=== PATIENT | female | born 1965 | race Caucasian/White ===

== ENCOUNTER → 2020-08-10 10:30 | Outpatient (BNVA) | payer SELFPAY | PROVIDERS: PCP Internal Medicine; Referring Provider Internal Medicine; Visit Provider Student in an Organized Health Care Education/Training Program | DX: Z76.89 Persons encountering health services in other specified circumstances (principal) ==

== ENCOUNTER 2020-11-03 14:09 | Outpatient (REF) | payer BC, SELFPAY ==
[2020-11-03 14:43] LABS: Basophils Percent Auto 0.2 % (0-2); Eosinophils Absolute Auto 0.2 X10*3/uL (0.0-0.4); Eosinophils Percent Auto 2.2 % (0-4); Hematocrit 44.4 % (37-47); Hemoglobin 14.7 g/dl (12.0-16.0); Imm Gran Abs Auto 0.03 X10*3/uL (0.00-0.03); Imm Gran Pct Auto 0.4 % (0.0-0.4); Lymphocytes Absolute Auto 3.2 X10*3/uL (1.2-4.9); Lymphocytes Percent Auto 37.9 % (20-40); MANUAL DIFF FLAG NO; Mean Corpuscular HGB Conc 33.1 g/dl (31.0-35.0); Mean Corpuscular Hemoglobin 31.3 pg (27.0-33.0); Mean Corpuscular Volume 94.7 fL (80-98); Mean Platelet Volume 11.4 fL (9.4-12.3); Monocytes Absolute Auto 0.5 X10*3/uL (0.1-1.2); Monocytes Percent Auto 5.6 % (2-11); Neutrophils Absolute Auto 4.5 X10*3/uL (2.0-8.3); Neutrophils Percent Auto 53.7 % (45-73); Platelet Count 225 X10*3/uL (160-400); Red Blood Count 4.69 X10*6/uL (4.20-5.50); Red Cell Distribution Width 13.2 % (11.0-16.0); White Blood Count 8.5 X10*3/uL (4.8-10.8)
[2020-11-03 14:47] LABS: Glucose Urine UA NEG (NEG); Leukocyte Esterase Urine 2+ (NEG); Nitrite Urine NEG (NEG); Specific Gravity - Urine >= 1.030 (1.005-1.025); Urine Blood 2+ (NEG); Urine Ketones NEG (NEG); Urine Protein NEG (NEG-TRACE)
[2020-11-03 14:50] LABS: Appearance Urine HAZY; Color Urine YELLOW
[2020-11-03 15:04] LABS: Mucus Urine TRACE /LPF; Squamous Epithelial Cell Urine 1+ /LPF
[2020-11-03 15:11] LABS: Alanine Aminotransferase 61 U/L (0-31); Albumin Level 4.6 g/dL (3.5-5.0); Alkaline Phosphatase 102 U/L (39-117); Anion Gap 11 (12-20); Aspartate Amino Transferase 40 U/L (5-31); Bilirubin Total 0.3 mg/dL (0.0-1.0); Blood Urea Nitrogen 14 mg/dL (9-16); C Reactive Protein 0.87 mg/dL (< or = 0.50); Calcium 9.3 mg/dL (8.4-10.2); Carbon Dioxide 32 mmol/L (22-29); Chloride 104 mmol/L (96-108); Estimated Glomerular Filt Rate > 60; Glucose Random 80 mg/dL (60-115); Potassium 4.5 mmol/l (3.3-5.1); Sodium 142 mmol/L (135-145); Total Protein 6.8 g/dL (6.5-8.0)
[2020-11-03 15:22] LABS: Erythrocyte Sedimentation Rate 5 MM/HR (0-20)
[2020-11-05 11:52] LABS: Anti DNA DS Antibody <1 IU/mL
[2020-11-07 14:08] LABS: Complement C3 149 mg/dL (83-193)
== END 2020-11-03 14:10 | disposition home or self-care (01) ==
LOC: HO.LAB 14:09
PROVIDERS: PCP Internal Medicine; Visit Provider Student in an Organized Health Care Education/Training Program
DX: M35.00 Sjogren syndrome, unspecified (principal); D80.1 Nonfamilial hypogammaglobulinemia; Z79.899 Other long term (current) drug therapy
CPT/HCPCS: 36415; 80053; 81001; 85025; 85652; 86140; 86160; 86225

== ENCOUNTER 2020-11-15 16:15 | Outpatient (REF) | payer BC, SELFPAY ==
[2020-11-15 17:00] LABS: Glucose Urine UA NEG (NEG); Leukocyte Esterase Urine TRACE (NEG); Nitrite Urine NEG (NEG); PH 5.5 (5.0-8.0); Specific Gravity - Urine >= 1.030 (1.005-1.025); Urine Blood TRACE (NEG); Urine Ketones NEG (NEG); Urine Protein NEG (NEG-TRACE)
[2020-11-15 17:04] LABS: Appearance Urine CLEAR; Color Urine YELLOW
[2020-11-15 17:24] LABS: Bacteria Urine 1+ /LPF; RBC Urine 0-2 /HPF (0); Squamous Epithelial Cell Urine TRACE /LPF; WBC Urine 0-2 /HPF (0-4)
[2020-11-15 17:28] LABS: Alanine Aminotransferase 23 U/L (0-31); Albumin Level 4.3 g/dL (3.5-5.0); Alkaline Phosphatase 105 U/L (39-117); Anion Gap 10 (12-20); Aspartate Amino Transferase 19 U/L (5-31); Bilirubin Total 0.2 mg/dL (0.0-1.0); Blood Urea Nitrogen 12 mg/dL (9-16); Carbon Dioxide 33 mmol/L (22-29); Chloride 104 mmol/L (96-108); Estimated Glomerular Filt Rate > 60; Glucose Random 93 mg/dL (60-115); Potassium 4.2 mmol/l (3.3-5.1); Sodium 143 mmol/L (135-145); Total Protein 6.4 g/dL (6.5-8.0)
== END 2020-11-15 16:16 | disposition home or self-care (01) ==
LOC: HO.LAB 16:15
PROVIDERS: PCP Internal Medicine; Visit Provider Student in an Organized Health Care Education/Training Program
DX: M35.00 Sjogren syndrome, unspecified (principal); Z79.899 Other long term (current) drug therapy
CPT/HCPCS: 36415; 80053; 81001

== ENCOUNTER → 2020-11-22 08:01 | Outpatient (BNVA) | payer BC, SELFPAY | PROVIDERS: PCP Internal Medicine; Referring Provider Internal Medicine; Visit Provider Student in an Organized Health Care Education/Training Program ==

== ENCOUNTER 2021-03-23 07:57 | Outpatient (REF) | payer BC, SELFPAY ==
[2021-03-23 09:37] LABS: MANUAL DIFF FLAG NO
[2021-03-23 09:45] LABS: Basophils Percent Auto 0.3 % (0-2); Eosinophils Absolute Auto 0.2 X10*3/uL (0.0-0.4); Hemoglobin 14.1 g/dl (12.0-16.0); Imm Gran Abs Auto 0.03 X10*3/uL (0.00-0.03); Imm Gran Pct Auto 0.4 % (0.0-0.4); Lymphocytes Absolute Auto 2.8 X10*3/uL (1.2-4.9); Lymphocytes Percent Auto 40.9 % (20-40); Mean Corpuscular HGB Conc 33.6 g/dl (31.0-35.0); Mean Corpuscular Hemoglobin 31.5 pg (27.0-33.0); Mean Corpuscular Volume 93.8 fL (80-98); Mean Platelet Volume 11.2 fL (9.4-12.3); Monocytes Absolute Auto 0.3 X10*3/uL (0.1-1.2); Monocytes Percent Auto 4.7 % (2-11); Neutrophils Absolute Auto 3.4 X10*3/uL (2.0-8.3); Neutrophils Percent Auto 50.7 % (45-73); Platelet Count 225 X10*3/uL (160-400); Red Blood Count 4.48 X10*6/uL (4.20-5.50); Red Cell Distribution Width 13.7 % (11.0-16.0); White Blood Count 6.8 X10*3/uL (4.8-10.8)
[2021-03-23 09:45] LABS: Glucose Urine UA NEG (NEG); Leukocyte Esterase Urine NEG (NEG); Nitrite Urine NEG (NEG); PH 5.5 (5.0-8.0); Specific Gravity - Urine >= 1.030 (1.005-1.025); Urine Blood 1+ (NEG); Urine Ketones NEG (NEG); Urine Protein NEG (NEG-TRACE)
[2021-03-23 09:47] LABS: Appearance Urine HAZY; Color Urine YELLOW
[2021-03-23 10:05] LABS: Alanine Aminotransferase 24 U/L (0-31); Albumin Level 4.1 g/dL (3.5-5.0); Alkaline Phosphatase 101 U/L (39-117); Anion Gap 11 (12-20); Aspartate Amino Transferase 18 U/L (5-31); Bilirubin Total 0.5 mg/dL (0.0-1.0); Blood Urea Nitrogen 13 mg/dL (9-16); C Reactive Protein 0.76 mg/dL (< or = 0.50); Calcium 9.2 mg/dL (8.4-10.2); Carbon Dioxide 29 mmol/L (22-29); Chloride 106 mmol/L (96-108); Estimated Glomerular Filt Rate > 60; Glucose Random 107 mg/dL (60-115); Potassium 4.6 mmol/L (3.3-5.1); Sodium 141 mmol/L (135-145); Total Protein 6.2 g/dL (6.5-8.0)
[2021-03-23 10:10] LABS: Bacteria Urine TRACE /LPF; RBC Urine 0-2 /HPF (0); Squamous Epithelial Cell Urine 3+ /LPF; WBC Urine 0-2 /HPF (0-4)
[2021-03-23 10:37] LABS: Erythrocyte Sedimentation Rate 7 MM/HR (0-20)
[2021-03-24 14:11] LABS: Complement C3 98 mg/dL (83-193)
[2021-03-25 12:21] LABS: Anti DNA DS Antibody 1 IU/mL; SM/Ribonucleoprotein Ab <1.0 NEG AI (<1.0 NEG); Smith Protein <1.0 NEG AI (<1.0 NEG)
[2021-03-27 15:37] LABS: Anti Nuclear Antibody Screen POSITIVE (NEGATIVE)
== END 2021-03-23 07:58 | disposition home or self-care (01) ==
LOC: HO.LAB 07:57
PROVIDERS: PCP Internal Medicine; Visit Provider Student in an Organized Health Care Education/Training Program
DX: M35.00 Sjogren syndrome, unspecified (principal); D80.1 Nonfamilial hypogammaglobulinemia; Z79.899 Other long term (current) drug therapy
CPT/HCPCS: 36415; 80053; 81001; 85025; 85652; 86038; 86039; 86140; 86160; 86225; 86235

== ENCOUNTER 2021-06-24 09:05 | Outpatient (REF) | payer BC, SELFPAY ==
[2021-06-24 10:13] LABS: MANUAL DIFF FLAG NO
[2021-06-24 10:15] LABS: Basophils Percent Auto 0.5 % (0-2); Eosinophils Absolute Auto 0.3 X10*3/uL (0.0-0.4); Eosinophils Percent Auto 4.5 % (0-4); Hematocrit 42.7 % (37-47); Hemoglobin 14.5 g/dl (12.0-16.0); Imm Gran Abs Auto 0.02 X10*3/uL (0.00-0.03); Imm Gran Pct Auto 0.3 % (0.0-0.4); Lymphocytes Absolute Auto 2.3 X10*3/uL (1.2-4.9); Lymphocytes Percent Auto 36.7 % (20-40); Mean Corpuscular Hemoglobin 31.5 pg (27.0-33.0); Mean Corpuscular Volume 92.6 fL (80-98); Mean Platelet Volume 11.3 fL (9.4-12.3); Monocytes Absolute Auto 0.6 X10*3/uL (0.1-1.2); Monocytes Percent Auto 9.2 % (2-11); Neutrophils Percent Auto 48.8 % (45-73); Platelet Count 202 X10*3/uL (160-400); Red Blood Count 4.61 X10*6/uL (4.20-5.50); Red Cell Distribution Width 13.4 % (11.0-16.0); White Blood Count 6.2 X10*3/uL (4.8-10.8)
[2021-06-24 10:47] LABS: Alanine Aminotransferase 26 U/L (0-31); Albumin Level 4.2 g/dL (3.5-5.0); Alkaline Phosphatase 109 U/L (39-117); Anion Gap 14 (12-20); Aspartate Amino Transferase 22 U/L (5-31); Bilirubin Total 0.5 mg/dL (0.0-1.0); Blood Urea Nitrogen 13 mg/dL (9-16); C Reactive Protein 3.21 mg/dL (< or = 0.50); Calcium 9.4 mg/dL (8.4-10.2); Carbon Dioxide 25 mmol/L (22-29); Chloride 106 mmol/L (96-108); Estimated Glomerular Filt Rate > 60; Glucose Random 122 mg/dL (60-115); Sodium 141 mmol/L (135-145); Total Protein 6.4 g/dL (6.5-8.0)
[2021-06-24 11:32] LABS: Glucose Urine UA NEG (NEG); Leukocyte Esterase Urine NEG (NEG); Nitrite Urine NEG (NEG); PH 5.5 (5.0-8.0); Specific Gravity - Urine >= 1.030 (1.005-1.025); Urine Blood 1+ (NEG); Urine Ketones NEG (NEG); Urine Protein NEG (NEG-TRACE)
[2021-06-24 11:37] LABS: Appearance Urine HAZY; Color Urine YELLOW
[2021-06-24 11:45] LABS: Bacteria Urine 1+ /LPF; Mucus Urine 1+ /LPF; Squamous Epithelial Cell Urine 2+ /LPF
== END 2021-06-24 09:06 | disposition home or self-care (01) ==
LOC: HO.LAB 09:05
PROVIDERS: PCP Internal Medicine; Visit Provider Student in an Organized Health Care Education/Training Program
DX: M35.00 Sjogren syndrome, unspecified (principal)
CPT/HCPCS: 36415; 80053; 81001; 85025; 86140

== ENCOUNTER 2021-06-27 08:01 | Outpatient (REF) | payer BC, SELFPAY ==
[2021-06-27 10:03] LABS: HBS Num1 0.31 mIU/mL (0-7.99); ~Hepatitis B Surface Antibody NONREACTIVE (Nonreactive)
[2021-06-27 10:14] LABS: HBc Num1 0.08 S/CO (0.00-0.79); HBsAGNum1 0.21 S/CO (0.00-0.99); Hepatitis B Core Antibody Nonreactive (Nonreactive); Hepatitis B Surface Antigen Negative (Negative); ~Hepatitis C Antibody Nonreactive (Nonreactive)
[2021-06-28 08:48] LABS: Hepatitis A Antibody IgM 0.14 Index (0-0.79); ~Hepatitis A Antibody IgM Nonreactive (Nonreactive)
[2021-06-30 12:21] LABS: TS Negative Control Passed; TS Panel A 0; TS Panel B 0; TS Positive Control Passed; TSpotTB Negative (SeeBelow)
== END 2021-06-27 08:02 | disposition home or self-care (01) ==
LOC: HO.LAB 08:01
PROVIDERS: PCP Internal Medicine; Visit Provider Student in an Organized Health Care Education/Training Program
DX: M35.00 Sjogren syndrome, unspecified (principal); M06.00 Rheumatoid arthritis without rheumatoid factor, unspecified site; D80.1 Nonfamilial hypogammaglobulinemia; Z79.899 Other long term (current) drug therapy
CPT/HCPCS: 36415; 86481; 86704; 86706; 86709; 86803; 87340

== ENCOUNTER → 2022-01-01 08:01 | Outpatient (BNVA) | payer BC, SELFPAY | PROVIDERS: PCP Internal Medicine; Visit Provider Internal Medicine Rheumatology ==

== ENCOUNTER 2022-02-01 09:52 | Outpatient (REF) | payer BC, SELFPAY ==
[2022-02-01 10:39] LABS: MANUAL DIFF FLAG NO
[2022-02-01 11:34] LABS: Appearance Urine HAZY; Color Urine YELLOW; Glucose Urine UA NEG (NEG); Leukocyte Esterase Urine 1+ (NEG); Nitrite Urine NEG (NEG); Specific Gravity - Urine 1.025 (1.005-1.025); Urine Blood 1+ (NEG); Urine Ketones NEG (NEG); Urine Protein NEG (NEG-TRACE)
[2022-02-01 11:37] LABS: Alanine Aminotransferase 27 U/L (0-31); Aspartate Amino Transferase 22 U/L (5-31); Estimated Glomerular Filt Rate > 60
[2022-02-01 11:43] LABS: Basophils Percent Auto 0.1 % (0-2); Eosinophils Absolute Auto 0.2 X10*3/uL (0.0-0.4); Eosinophils Percent Auto 2.2 % (0-4); Hematocrit 44.1 % (37.0-47.0); Hemoglobin 14.6 g/dl (12.0-16.0); Imm Gran Abs Auto 0.03 X10*3/uL (0.00-0.03); Imm Gran Pct Auto 0.4 % (0.0-0.4); Lymphocytes Absolute Auto 3.4 X10*3/uL (1.2-4.9); Lymphocytes Percent Auto 48.6 % (20-40); Mean Corpuscular HGB Conc 33.1 g/dl (31.0-35.0); Mean Corpuscular Hemoglobin 30.8 pg (27.0-33.0); Mean Platelet Volume 11.8 fL (9.4-12.3); Monocytes Absolute Auto 0.5 X10*3/uL (0.1-1.2); Monocytes Percent Auto 6.8 % (2-11); Neutrophils Absolute Auto 2.9 x10*3/uL (2.0-8.3); Neutrophils Percent Auto 41.9 % (45-73); Platelet Count 203 X10*3/uL (160-400); Red Blood Count 4.74 X10*6/uL (4.20-5.50); Red Cell Distribution Width 13.5 % (11.0-16.0)
[2022-02-01 12:09] LABS: Bacteria Urine 2+ /LPF; Mucus Urine 1+ /LPF; Squamous Epithelial Cell Urine 3+ /LPF
[2022-02-01 12:34] LABS: Erythrocyte Sedimentation Rate 3 MM/HR (0-20)
[2022-02-05 13:02] LABS: Cyclic Citrullinated Peptide <16 UNITS
== END 2022-02-01 09:53 | disposition home or self-care (01) ==
LOC: HO.LAB 09:52
PROVIDERS: PCP Internal Medicine; Visit Provider Internal Medicine Rheumatology
DX: M06.00 Rheumatoid arthritis without rheumatoid factor, unspecified site (principal); M62.81 Muscle weakness (generalized); Z79.899 Other long term (current) drug therapy
CPT/HCPCS: 36415; 81001; 82550; 82565; 84450; 84460; 85025; 85652; 86200

== ENCOUNTER → 2022-02-05 08:03 | Outpatient (BNVA) | payer BC, SELFPAY | PROVIDERS: PCP Internal Medicine; Visit Provider Internal Medicine Rheumatology | DX: Z13.89 Encounter for screening for other disorder (principal) ==

== ENCOUNTER → 2022-02-22 09:07 | Outpatient (BNVA) | payer BC, SELFPAY | PROVIDERS: PCP Internal Medicine; Visit Provider Internal Medicine Rheumatology | DX: Z13.89 Encounter for screening for other disorder (principal) ==

== ENCOUNTER 2022-05-08 08:59 | Outpatient (REF) | payer BC, SELFPAY ==
[2022-05-08 09:21] LABS: MANUAL DIFF FLAG NO
[2022-05-08 09:54] LABS: Basophils Percent Auto 0.4 % (0-2); Eosinophils Absolute Auto 0.1 X10*3/uL (0.0-0.4); Eosinophils Percent Auto 2.7 % (0-4); Hematocrit 42.8 % (37.0-47.0); Hemoglobin 14.3 g/dl (12.0-16.0); Imm Gran Abs Auto 0.02 X10*3/uL (0.00-0.03); Imm Gran Pct Auto 0.4 % (0.0-0.4); Lymphocytes Absolute Auto 2.7 X10*3/uL (1.2-4.9); Lymphocytes Percent Auto 51.2 % (20-40); Mean Corpuscular HGB Conc 33.4 g/dl (31.0-35.0); Mean Corpuscular Hemoglobin 31.2 pg (27.0-33.0); Mean Corpuscular Volume 93.2 fL (80.0-98.0); Mean Platelet Volume 11.3 fL (9.4-12.3); Monocytes Absolute Auto 0.3 X10*3/uL (0.1-1.2); Monocytes Percent Auto 6.4 % (2-11); Neutrophils Percent Auto 38.9 % (45-73); Platelet Count 202 X10*3/uL (160-400); Red Blood Count 4.59 X10*6/uL (4.20-5.50); Red Cell Distribution Width 13.6 % (11.0-16.0); White Blood Count 5.2 X10*3/uL (4.8-10.8)
[2022-05-08 09:55] LABS: Appearance Urine CLEAR; Color Urine YELLOW; Glucose Urine UA NEG (NEG); Leukocyte Esterase Urine NEG (NEG); Nitrite Urine NEG (NEG); Urine Blood 2+ (NEG); Urine Ketones NEG (NEG); Urine Protein NEG (NEG-TRACE)
[2022-05-08 10:13] LABS: Bacteria Urine 1+ /LPF; Squamous Epithelial Cell Urine 3+ /LPF; WBC Urine 0-2 /HPF (0-4)
[2022-05-08 10:22] LABS: Alanine Aminotransferase 33 U/L (0-31); Aspartate Amino Transferase 34 U/L (5-31); C Reactive Protein 0.86 mg/dL (< or = 0.50); Estimated Glomerular Filt Rate > 60
[2022-05-08 10:33] LABS: Erythrocyte Sedimentation Rate 5 MM/HR (0-20)
== END 2022-05-08 09:00 | disposition home or self-care (01) ==
LOC: HO.LAB 08:59
PROVIDERS: PCP Internal Medicine; Visit Provider Internal Medicine Rheumatology
DX: M06.00 Rheumatoid arthritis without rheumatoid factor, unspecified site (principal); Z79.899 Other long term (current) drug therapy
CPT/HCPCS: 36415; 81001; 82565; 84450; 84460; 85025; 85652; 86140

== ENCOUNTER 2022-08-07 12:23 | Outpatient (REF) | payer BC, SELFPAY ==
[2022-08-07 13:59] LABS: Appearance Urine Cloudy; Color Urine Dark Yellow; Glucose Urine UA Negative (Negative); Leukocyte Esterase Urine Small (1+) (Negative); Nitrite Urine Negative (Negative); PH 5.5 (5.0-9.0); Specific Gravity - Urine >= 1.030 (1.005-1.025); UMIC TRIGGER UA YES; Urine Blood Small (1+) (Negative); Urine Ketones Trace mg/dL (Negative); Urine Protein Trace mg/dL (Neg-Trace)
[2022-08-07 14:16] LABS: Bacteria Urine 4+ (None Seen); Hyaline Casts Urine 0-2 /LPF (0-2); Squamous Epithelial Cell Urine >20 /HPF (0-2)
[2022-08-07 14:27] LABS: Alanine Aminotransferase 34 U/L (0-31); Albumin Level 4.6 g/dL (3.5-5.0); Alkaline Phosphatase 98 U/L (39-117); Aspartate Amino Transferase 32 U/L (5-31); Bilirubin Direct 0.2 mg/dL (0.0-0.5); Bilirubin Total 0.5 mg/dL (0.0-1.0); Total Protein 6.9 g/dL (6.5-8.0)
[2022-08-08 16:47] LABS: Complement C3 153 mg/dL (83-193)
[2022-08-10 08:22] LABS: Anti DNA DS Antibody <1 IU/mL
== END 2022-08-07 12:24 | disposition home or self-care (01) ==
LOC: HO.10HDL 12:23
PROVIDERS: Visit Provider Internal Medicine Rheumatology
DX: R76.8 Other specified abnormal immunological findings in serum (principal); R74.01 Elevation of levels of liver transaminase levels
CPT/HCPCS: 36415; 80076; 81001; 82550; 86160; 86225

== ENCOUNTER 2022-11-16 15:57 | Outpatient (REF) | payer BC, SELFPAY ==
--- NOTE | ~2022-11-16 | XR_ITS ---
EXAMINATION: XR SINUSES CLINICAL INFORMATION: Sinusitis. COMPARISON: None TECHNIQUE: 5 views of the sinuses were obtained. FINDINGS: Large air-fluid levels are seen in the maxillary sinuses bilaterally, right greater than left with near complete opacification on the right. Similar air-fluid levels are seen in the frontal sinuses. The ethmoid and sphenoid sinuses are less well-visualized without definitive air-fluid levels. The osseous structures are intact. There is no acute fracture. The soft tissues are unremarkable. XR/XR sinus min 3V IMPRESSION: Paranasal sinusitis visualized within the maxillary and frontal sinuses radiographically. This could be better evaluated with a sinus CT scan.
== END 2022-11-16 15:58 | disposition home or self-care (01) ==
LOC: HO.XRAY 15:57
PROVIDERS: PCP Internal Medicine; Visit Provider Physician Assistant
DX: J32.9 Chronic sinusitis, unspecified (principal)
CPT/HCPCS: 70220

== ENCOUNTER 2022-12-26 08:21 | Outpatient (REF) | payer BC, SELFPAY ==
[2022-12-26 08:34] LABS: MANUAL DIFF FLAG NO
[2022-12-26 09:03] LABS: Hematocrit 45.1 % (37.0-47.0); Hemoglobin 15.1 g/dl (12.0-16.0); Imm Gran Pct Auto 0.3 % (0.0-0.4); Lymphocytes Percent Auto 45.5 % (20-40); Mean Corpuscular HGB Conc 33.5 g/dl (31.0-35.0); Mean Corpuscular Hemoglobin 30.8 pg (27.0-33.0); Mean Corpuscular Volume 91.9 fL (80.0-98.0); Mean Platelet Volume 11.5 fL (9.4-12.3); Neutrophils Percent Auto 45.8 % (45-73); Platelet Count 210 X10*3/uL (160-400); Red Blood Count 4.91 X10*6/uL (4.20-5.50); Red Cell Distribution Width 13.7 % (11.0-16.0); White Blood Count 6.5 X10*3/uL (4.8-10.8)
[2022-12-26 09:04] LABS: Basophils Percent Auto 0.3 % (0-2); Eosinophils Absolute Auto 0.2 X10*3/uL (0.0-0.4); Eosinophils Percent Auto 2.9 % (0-4); Imm Gran Abs Auto 0.02 X10*3/uL (0.00-0.03); Monocytes Absolute Auto 0.3 X10*3/uL (0.1-1.2); Monocytes Percent Auto 5.2 % (2-11)
[2022-12-26 09:39] LABS: Erythrocyte Sedimentation Rate 6 MM/HR (0-20)
[2022-12-26 10:01] LABS: Alanine Aminotransferase 21 U/L (0-31); Aspartate Amino Transferase 21 U/L (5-31); C Reactive Protein 0.41 mg/dL (< or = 0.50); Estimated Glomerular Filt Rate > 60
== END 2022-12-26 08:22 | disposition home or self-care (01) ==
LOC: HO.LAB 08:21
PROVIDERS: PCP Internal Medicine; Visit Provider Internal Medicine Rheumatology
DX: M06.00 Rheumatoid arthritis without rheumatoid factor, unspecified site (principal); Z79.899 Other long term (current) drug therapy
CPT/HCPCS: 36415; 82565; 84450; 84460; 85025; 85652; 86140

== ENCOUNTER 2024-11-12 07:57 | Outpatient (REF) | payer BC, SELFPAY ==
[2024-11-12 10:07] LABS: MANUAL DIFF FLAG NO
[2024-11-12 10:31] LABS: Basophils Percent Auto 0.4 % (0-2); Eosinophils Absolute Auto 0.3 X10*3/uL (0.0-0.4); Eosinophils Percent Auto 3.5 % (0-4); Hemoglobin 15.2 g/dl (12.0-16.0); Imm Gran Abs Auto 0.03 X10*3/uL (0.00-0.03); Imm Gran Pct Auto 0.4 % (0.0-0.4); Lymphocytes Absolute Auto 3.1 X10*3/uL (1.2-4.9); Lymphocytes Percent Auto 39.1 % (20-40); Mean Corpuscular HGB Conc 34.5 g/dl (31.0-35.0); Mean Corpuscular Hemoglobin 31.5 pg (27.0-33.0); Mean Corpuscular Volume 91.3 fL (80.0-98.0); Mean Platelet Volume 10.4 fL (9.4-12.3); Monocytes Absolute Auto 0.5 X10*3/uL (0.1-1.2); Monocytes Percent Auto 6.1 % (2-11); Neutrophils Absolute Auto 4.1 x10*3/uL (2.0-8.3); Neutrophils Percent Auto 50.5 % (45-73); Platelet Count 253 X10*3/uL (160-400); Red Blood Count 4.82 X10*6/uL (4.20-5.50); Red Cell Distribution Width 14.2 % (11.0-16.0)
[2024-11-12 11:01] LABS: Appearance Urine Hazy; Color Urine Yellow; Glucose Urine UA Negative (Negative); Leukocyte Esterase Urine Small (1+) (Negative); Nitrite Urine Negative (Negative); PH 5.5 (5.0-9.0); Specific Gravity - Urine >= 1.030 (1.005-1.025); UMIC TRIGGER UA YES; Urine Blood Small (1+) (Negative); Urine Ketones Negative (Negative); Urine Protein Negative (Neg-Trace)
[2024-11-12 11:08] LABS: Alanine Aminotransferase 99 U/L (0-31); Albumin Level 4.3 g/dL (3.5-5.0); Anion Gap 12 (12-20); Aspartate Amino Transferase 51 U/L (5-31); Bilirubin Total 0.5 mg/dL (0.0-1.0); Blood Urea Nitrogen 11 mg/dL (9-16); C Reactive Protein 0.65 mg/dL (< or = 0.50); Calcium 9.3 mg/dL (8.4-10.2); Carbon Dioxide 25 mmol/L (22-29); Chloride 109 mmol/L (96-108); Estimated Glomerular Filt Rate > 60; Glucose Random 94 mg/dL (60-115); Sodium 142 mmol/L (135-145)
[2024-11-12 11:08] LABS: Erythrocyte Sedimentation Rate 6 MM/HR (0-20)
[2024-11-12 11:41] LABS: Bacteria Urine 2+ (None Seen); Squamous Epithelial Cell Urine >20 /HPF (0-2)
[2024-11-12 12:25] LABS: Alkaline Phosphatase 92 U/L (39-117)
[2024-11-12 13:52] LABS: Creatinine Urine 140.66 mg/dL; Protein/Creatinine Ratio, Ur 0.07 (<0.2); Total Protein Urine Random 10 mg/dL (<12)
[2024-11-13 16:38] LABS: Anti DNA DS Antibody <1 IU/mL; Antibody to SS-A Antigen <1.0 NEG AI (<1.0 NEG); Antibody to SS-B Antigen >8.0 POS AI (<1.0 NEG); SM/Ribonucleoprotein Ab <1.0 NEG AI (<1.0 NEG); Smith Protein <1.0 NEG AI (<1.0 NEG)
[2024-11-16 17:54] LABS: Complement C3 162 mg/dL (83-193)
[2024-11-17 14:17] LABS: Vitamin D 25-OH, D2 <4 ng/mL; Vitamin D 25-OH, D3 14 ng/mL; Vitamin D 25-OH, Total 14 ng/mL (30-100)
[2024-11-17 15:53] LABS: DNAds, Crithidia Antibody Negative (Negative)
[2024-11-17 22:47] LABS: PTT (LAC) Screen 31 sec (<=40)
[2024-11-18 15:59] LABS: Anti Nuclear Antibody Screen NEGATIVE (NEGATIVE)
== END 2024-11-12 07:58 | disposition home or self-care (01) ==
LOC: HO.LAB 07:57
PROVIDERS: PCP Family Medicine; Visit Provider Student in an Organized Health Care Education/Training Program
DX: M32.9 Systemic lupus erythematosus, unspecified (principal); M70.61 Trochanteric bursitis, right hip; M70.62 Trochanteric bursitis, left hip; Z79.899 Other long term (current) drug therapy
CPT/HCPCS: 20610; 36415; 80053; 81001; 82306; 82570; 84156; 85025; 85597; 85598; 85613; 85652; 85730; 86038; 86140; 86160; 86225; 86235; 86255; J2003; J3300

== ENCOUNTER 2024-11-12 07:57 | Outpatient (AMB) | payer BC, SELFPAY ==
[2024-11-12 08:09] VITALS: BP 150/100; PULSE 76; BMI 32.3
--- NOTE | 2024-11-12 08:09 | MHC.OFFVIS ---
Vital Signs 11/12/24 08:09 Height 5 ft 8 in Weight 212 lb 8.41 oz BMI 32.3 BP 150/100 H Blood Pressure Location Rt brachial Position Sitting Pulse 76 Pulse Source Pulse Oximeter Intake Visit Reasons: RA Intake Note: Patient last seen by Deep Castanon on 08/08/22. Presents today for RA follow up. Fish Tender Required: No Accompanied by: Self / Same As Patient Allergies levofloxacin [From LEVAQUIN] Allergy (Severe, Verified 11/12/24 08:13) ANAPHYLAXIS ENVIRONMENTAL Allergy (Mild, Uncoded 11/12/24 08:13) SINSUS CONGESTION, ITCHY/WATERY EYES Medication List - Last Reconciled 11/12/24 by America Barrera MD acetaminophen ER (Mapap Arthritis Pain) 650 mg PO Q8H PRN cetirizine (Zyrtec) 10 mg PO DAILY diphenhydramine-acetaminophen 25-500 mg (Tylenol PM Extra Strength) 1 tab PO BEDTIME folic acid 1 mg PO DAILY hydroxychloroquine 200 mg PO BID methotrexate sodium 7.5 mg (3 x 2.5 mg) PO QWEEK triamcinolone acetonide 0.1% 1 appl topical DAILY HPI Comments Details: Patient is a 59-year-old female with lupus presents today for follow up. Interval History: Patient last seen here 08/08/[address] Carmichael. At that time patient was stable. Methotrexate was decreased because she was doing well on Humira. Since that time she has not been seeing a back order clerk regularly and has stopped Humira for over 1 year due to high co-pays Over the past year she has been having worsening joint pain and rashes. Currently her face rash has been present since and has been worsening. SHe also reports painful rash to her hand and fingers. Rheumatologic History: Patient initially diagnosed with an autoimmune disorder back in 2015. At that time she was thought to have Sjogren's syndrome with a positive LOGAN and positive SSB. She also had some inflammatory joint pain and was started on Plaquenil and methotrexate. She was also noting malar rash the time. She was then subsequently thought to have seronegative rheumatoid arthritis and subsequently started on Humira which helped her joint pain. Her last follow up with Rheumatology was in 2022. Current Rheumatology Medication(s): Hydroxychloroquine 200mg bid Methotrexate 15mg weekly Humira 40mg SC every other week (last took 1 year ago. Stopped due to insurance issues) Folic acid 1 mg [facility] Medical History (Updated 11/12/24 @ 11:17 by America Barrera MD) Greater trochanteric bursitis of both hips Lupus (systemic lupus erythematosus) Osteoarthritis of lumbosacral spine Osteoarthritis of both knees Nail abnormalities Sjogren's syndrome Surgical History Hx of appendectomy Hx of cholecystectomy Social History Household Members: Spouse Both parents involved: No Caregiver staying overnight: No Housing: House Are you a primary child care center assistant director to a significant other at home: No Do you presently have visiting nurse or other home services: No 75 years or older and lives alone: No Alcohol intake: current Alcohol intake frequency: holidays/special occasions only Alcohol type: hard liquor Patient Tobacco Use Status: Former Tobacco user Years Smoked: quit 1 1/2 years ago Review of Systems Const Details: Review of Systems Constitutional: Denies fever, chills, weight loss ENT: Denies vision changes, eye pain or eye redness, dental caries, dry mouth GI: Denies nausea, vomiting, diarrhea, abdominal pain, change in BM Pulm: Denies SOB, ROMO, hemoptysis, wheezing Cards: Denies chest pain, palpitations Skin: Denies Raynaud's, nail changes, photosensitivity, INSTANT POTATO PROCESSOR: Denies headaches, weakness, paresthesias, recurrent falls MSK: as per HPI All other systems reviewed and are unremarkable except noted above Physical Exam Vital Signs: Last Vital Signs Pulse 76 11/12/24 08:09 BP 150/100 H 11/12/24 08:09 BMI result Body Mass Index 32.3 Physical Examination CONSTITUITIONAL Patient alert and cooperative. Well appearing and in no apparent painful distress HEENT Conjunctiva and sclera clear. ?Pupils equal round and reactive to light. ?No lymphadenopathy. ? CHEST/RESPIRATORY SYSTEM Normal respiratory effort and able to speak in complete sentences. ?Clear to auscultation bilaterally. ?No crackles, rales, rhonchi, wheezes heard. CARDIAC SYSTEM Regular rate and rhythm. ?S1 and S2 heard no murmurs. ?Radial pulses intact bilaterally MSK Hands: ?Good managing manager strength bilaterally. No deformities noted. ?TTP of the MCPs and PIPs Wrists: ?Full range of motion at the wrists without pain. ?TTP of the wrists Elbows: Full range of motion without pain. No tenderness, weakness, swelling, increased warmth or erythema. Shoulders: Full range of motion without pain. No tenderness, weakness, swelling, increased warmth or erythema. Hips: Full range of motion without pain. Hip bursa: Bilateral TTP Knees: ?Full range of motion. ?No tenderness, swelling, increased warmth or erythema.?No effusion or crepitations Ankles: Full range of motion. ?No tenderness, swelling, increased warmth or erythema.? Feet: ?Negative squeeze test. ?No tenderness to palpation or swelling of the MTPs. Tender points:?No tenderness to palpation of the bilateral trapezius, supraspinatus, anterior costochondral junctions, bilateral gluteal areas, bilateral suboccipital muscle insertions SKIN Malar rash Chillblains rash on hand Office Procedures AMB Joint Injection/Aspiration Joint Injection/Aspiration Details: Procedure was explained to the patient and consent was obtained. ? The area of interest was identified and confirmed with patient. ?This was subsequently cleaned with chlorhexidine x3. ? The area was then anesthetized using ethyl chloride spray. 40 mg Kenalog with 1 cc 1% lidocaine was injected without issue. ?Minimal to no bleeding. ?Patient tolerated procedure. Primary Site: other (Right greater trochanter bursa) Prep: site was prepped using aseptic technique and ethochloride spray was applied Injected: 40 mg of, DepoMedrol, with 1 mL of, 1% plain lidocaine and other (Right greater trochanter bursa) Approach Used: other Procedure: The patient tolerated the procedure well Coding 03357 - Glenohumeral/Tronchanteric Bursa/Intraarticular Procedure code (CPT) selection complete AMB Joint Injection/Aspiration Joint Injection/Aspiration Details: Procedure was explained to the patient and consent was obtained. ? The area of interest was identified and confirmed with patient. ?This was subsequently cleaned with chlorhexidine x3. ? The area was then anesthetized using ethyl chloride spray. 40 mg Kenalog with 1 cc 1% lidocaine was injected without issue. ?Minimal to no bleeding. ?Patient tolerated procedure. Primary Site: other (Left greater trochanter bursa) Prep: site was prepped using aseptic technique and ethochloride spray was applied Injected: 40 mg of, Kenalog, with 1 mL of, 1% plain lidocaine and other (Greater trochanter bursa) Approach Used: other Procedure: The patient tolerated the procedure well Coding 09872 - Glenohumeral/Tronchanteric Bursa/Intraarticular Procedure code (CPT) selection complete Office Meds lidocaine (PF) 10 mg/mL (1 %) injection solution Performing Provider: America Barrera MD Performing Location: [facility] [place] [facility] Administered by: Aemrica Barrera MD on 11/12/24 10:59 Dose Route Admin Location Dispensed Lot Number Expiration Date [facility] [place] Lawyer Probate 10 mg Infiltration 2 mL [id number] 02/02/27 80926-978-33 [employer] Kenalog 40 mg/mL suspension for injection Performing Provider: America Barrera MD Performing Location: [facility] [place] [facility] Administered by: America Barrera MD on 11/12/24 10:59 Dose Route Admin Location Dispensed Lot Number Expiration Date [facility] [place] Lawyer Probate 40 mg intrabursal 1 mL [id number] 05/04/26 [address]-7 [employer] lidocaine (PF) 10 mg/mL (1 %) injection solution Performing Provider: America Barrera MD Performing Location: [facility] [place] [facility] Administered by: America Barrera MD on 11/12/24 10:59 Dose Route Admin Location Dispensed Lot Number Expiration Date [facility] [place] Lawyer Probate 10 mg Infiltration 2 mL [id number] 02/02/27 03481-572-46 FRESENIUS KAB[employer] Kenalog 40 mg/mL suspension for injection Performing Provider: America Barrera MD Performing Location: [facility] [place] [facility] Administered by: America Barrera MD on 11/12/24 10:59 Dose Route Admin Location Dispensed Lot Number Expiration Date [facility] [place] Lawyer Probate 40 mg intrabursal 1 mL [id number]. 05/04/26 [address]-1 [employer] Results Reviewed Results Reviewed: Laboratory Tests 03/23/21 02/01/22 08/07/22 08:50 10:38 12:30 WBC RBC Hgb Hct Plt Count ESR Creatinine AST ALT C-Reactive Protein Urine Color Dark Yellow Urine Appearance Cloudy Ur Specific [place] >= 1.030 H Urine Protein Trace Cycl Citrul Peptide IgG <16 LOGAN Screen POSITIVE A LOGAN Titer 1:160 H Sm (Penny) Antibody <1.0 NEG SM/FILTER ASSEMBLER IgG Antibody <1.0 NEG Double Strand DNA Ab <1 Complement C3 153 Complement C4 30 12/26/22 08:34 WBC 6.5 RBC 4.91 Hgb 15.1 Hct 45.1 Plt Count 210 ESR 6 Creatinine 0.79 AST 21 ALT 21 C-Reactive Protein 0.41 Urine Color Urine Appearance Ur Specific [place] Urine Protein Cycl Citrul Peptide IgG LOGAN Screen LOGAN Titer Sm (Penny) Antibody SM/FILTER ASSEMBLER IgG Antibody Double Strand DNA Ab Complement C3 Complement C4 Assessment & Plan Assessment & Plan (1) Lupus (systemic lupus erythematosus): Comment: Onset 2014: with pos LOGAN, pos SS-B, sicca symptoms, malar rash. hydroxychloroquine, started 2015, 2018 methotrexate added, Humira added 06/2021 - not helpful, ran out of Humira and methotrexate early 2021. 12/2021 restarted methotrexate and Humira 08/25 Mtx decreased and Humira continued 08/25 - 11/2024 lost to follow up 11/2024: Humira discontinued, MTx increased, Benlysta started Code(s): M32.9 - Systemic lupus erythematosus, unspecified Category: Medical Qualifiers: Systemic lupus erythematosus type: unspecified Systemic lupus erythematosus organ involvement: unspecified Qualified Code(s): M32.9 - Systemic lupus erythematosus, unspecified Plan: #Lupus Patient today with a severe lupus flare involving her skin and her joints. We will start her on a short course of tapered steroids. Continue Plaquenil. Increase methotrexate to 8 pills weekly. We will start Benlysta because it has good efficacy for skin as well as joints. I was considering anifrolumab but I find that anifrolumab works better for skin then joints and since she has a combination of both I think Benlysta would be the better option. We will not prescribe Humira as this has been associated with inducing lupus and lupus-like flares. With respect to her previous diagnosis of seronegative rheumatoid arthritis I think her disease is mainly lupus with inflammatory arthritis. We will need to check x-rays of her hands in the future to see if there is any evidence of erosions to see if this qualifies for Rhupus (RA/Lupus) Plan - Benlysta 200mg SC weekly - Increase methotrexate to 20mg PO weekly - Folic Acid 1mg daily - CBC, CMP, ESR, CRP, LOGAN, DIANA, SSA, UA, UPC, APS labs, Complement - Prednisone 15mg x 10 days then, 10mg x 10 days then, 5mg x 10 days - RTC 30 days (2) Greater trochanteric bursitis of both hips: Code(s): M70.61 - Trochanteric bursitis, right hip; M70.62 - Trochanteric bursitis, left hip Category: Medical Plan: #Bilateral greater trochanteric bursitis Patient with bilateral greater trochanteric bursitis S/p bilateral steroid injection today (3) halfway methotrexate user: Code(s): Z79.899 - Other senior care (current) drug therapy Category: Medical Plan: #Long-term Current Use of Methotrexate Discussed with patient the benefits and risks of methotrexate for managing their rheumatic condition Benefits include reduced pain, reduced mortality, maintenance of remission and reduction of flares Risks include oral ulcers, photosensitivity, hepatotoxicity, hematologic toxicity, pneumonitis, flu-like symptoms (especially day after administration), nodulosis, lymphomas ? Limit alcohol and avoid Bactrim ? Monitoring: ?CBC, BMP, LFTs every 3-4 months and hepatitis serologies as needed (4) long term care social worker current use of immunosuppressive drug: Code(s): Z79.899 - Other senior care (current) drug therapy Category: Medical Plan: #Long-term Current Use of Belimumab Discussed with patient the benefits and risks of Belimumab for managing her lupus Benefits include reduced pain, reduced mortality, maintenance of remission and reduction of flares Risks include diarrhea, worsening depression, insomnia, worsening infections and heart problems ? Monitoring: ?CBC, BMP, LFTs every 3-4 months as needed Plan I spent 45 minutes reviewing the record and labs, taking a history, examining the patient, discussing the treatment plan and documenting in the medical record Orders: Orders Complement C3 Today M32.9 - Systemic lupus erythematosus, unspecified Complement C4 Today M32.9 - Systemic lupus erythematosus, unspecified Erythrocyte Sedimentation Rate Today M32.9 - Systemic lupus erythematosus, unspecified Lupus Anticoagulant Panel Today M32.9 - Systemic lupus erythematosus, unspecified Protein Creatinine Ratio, Ur Today M32.9 - Systemic lupus erythematosus, unspecified Sjogren's Antibodies Today M32.9 - Systemic lupus erythematosus, unspecified AMB Joint Injection/Aspiration Today M70.61 - Trochanteric bursitis, right hip, M70.62 - Trochanteric bursitis, left hip Rheumatoid Factor Today M19.049 - Primary osteoarthritis, unspecified hand, M32.9 - Systemic lupus erythematosus, unspecified XR hand wrist RT Today M19.049 - Primary osteoarthritis, unspecified hand, M32.9 - Systemic lupus erythematosus, unspecified LOGAN Reflex Titer and Pattern Today M32.9 - Systemic lupus erythematosus, unspecified Anti Extractable Nuclear Ag Today M32.9 - Systemic lupus erythematosus, unspecified Anti DNA DS Antibody Today M32.9 - Systemic lupus erythematosus, unspecified C Reactive Protein Today M32.9 - Systemic lupus erythematosus, unspecified DNA Double Stranded-Crithidia Today M32.9 - Systemic lupus erythematosus, unspecified UA w Microscopic Today M32.9 - Systemic lupus erythematosus, unspecified Complete Blood Count Auto Diff Today M32.9 - Systemic lupus erythematosus, unspecified Comprehensive Met. Panel Today M32.9 - Systemic lupus erythematosus, unspecified Vitamin D 25-OH (D2 and D3) Today M32.9 - Systemic lupus erythematosus, unspecified AMB Joint Injection/Aspiration Today M70.61 - Trochanteric bursitis, right hip, M70.62 - Trochanteric bursitis, left hip Cyclic Citrullinated Peptide Today M19.049 - Primary osteoarthritis, unspecified hand, M32.9 - Systemic lupus erythematosus, unspecified XR hand wrist LT Today M19.049 - Primary osteoarthritis, unspecified hand, M32.9 - Systemic lupus erythematosus, unspecified Medications: New prednisone Take 3 tablets for 10 days then 2 tablets for 10 days then 1 tablet for 10 days then stop 5 mg PO DIRECTED 90 tabs 0RF M32.9 - Systemic lupus erythematosus, unspecified belimumab (Benlysta) inject into upper thigh or abdomen; rotate sites 200 mg subcut QWEEK 30 days 5 mL 3RF M32.9 - Systemic lupus erythematosus, unspecified belimumab (Benlysta) inject into upper thigh or abdomen; rotate sites 200 mg subcut QWEEK 30 days 5 mL 3RF M32.9 - Systemic lupus erythematosus, unspecified Changed From methotrexate sodium 7.5 mg (3 x 2.5 mg) PO QWEEK 12 tabs 0RF M32.9 - Systemic lupus erythematosus, unspecified To methotrexate sodium 20 mg (8 x 2.5 mg) PO QWEEK 90 days 104 tabs 1RF M32.9 - Systemic lupus erythematosus, unspecified Refilled folic acid 1 mg PO DAILY 90 tabs 3RF M06.00 - Rheumatoid arthritis without rheumatoid factor, unspecified site hydroxychloroquine 200 mg PO BID 180 tabs 1RF M35.00 - Sjogren syndrome, unspecified Coding Level of Care Code Est Pt Level 5 (64724) Complex EM visit Add On G2211 Diagnoses Systemic lupus erythematosus, unspecified SLE type, unspecified organ involvement status M32.9 Systemic lupus erythematosus type: unspecified Systemic lupus erythematosus organ involvement: unspecified Greater trochanteric bursitis of both hips M70.61; M70.62 long term care social worker methotrexate user Z79.899 halfway current use of immunosuppressive drug Z79.899 CPT Codes Coding - Joint 7: 59269 - Glenohumeral/Tronchanteric Bursa/Intraarticular ([id number]) Coding - Joint 7: 67727 - Glenohumeral/Tronchanteric Bursa/Intraarticular ([id number])
== END 2024-11-12 09:16 | disposition home or self-care (01) ==
PROVIDERS: PCP Internal Medicine; Visit Provider Student in an Organized Health Care Education/Training Program
DX: M32.9 Systemic lupus erythematosus, unspecified (principal); M70.61 Trochanteric bursitis, right hip; M70.62 Trochanteric bursitis, left hip; Z79.899 Other long term (current) drug therapy
CPT/HCPCS: 20610; 99215

== ENCOUNTER 2024-12-16 10:35 | Outpatient (AMB) | payer BC, SELFPAY ==
--- NOTE | 2024-12-16 10:40 | MHC.OFFVIS ---
Vital Signs 12/16/24 10:46 Height 5 ft 8 in Weight 214 lb 8.156 oz BMI 32.6 BP 132/84 Blood Pressure Location Rt brachial Position Sitting Pulse 68 Pulse Source Pulse Oximeter Pulse Oximetry (%) 99 Oxygen Delivery Method Room Air Intake Visit Reasons: RA Intake Note: Patient presents for RA. Allergies levofloxacin [From LEVAQUIN] Allergy (Severe, Verified 12/16/24 10:45) ANAPHYLAXIS ENVIRONMENTAL Allergy (Mild, Uncoded 11/12/24 08:13) SINSUS CONGESTION, ITCHY/WATERY EYES HPI Comments Details: Patient is a 59-year-old female with lupus presents today for follow up. Interval History: Patient last seen here 11/2024 with me. At that time patient was stable. At that time she was having a flare of her lupus with malar rash and chilblains as well as inflammatory arthritis. She was given a prednisone taper, methotrexate increased, Benlysta ordered. She was also given bilateral greater trochanteric bursitis injections Today, patient reports doing much better. Rashes improved on her face and on her hands Denies ongoing joint pain Has not started Benlysta as yet due to insurance delays Rheumatologic History: Patient initially diagnosed with an autoimmune disorder back in 2015. At that time she was thought to have Sjogren's syndrome with a positive LOGAN and positive SSB. She also had some inflammatory joint pain and was started on Plaquenil and methotrexate. She was also noting malar rash the time. She was then subsequently thought to have seronegative rheumatoid arthritis and subsequently started on Humira which helped her joint pain. Her last follow up with Rheumatology was in 2022. Current Rheumatology Medication(s): Hydroxychloroquine 200mg bid Methotrexate 20mg weekly Folic acid 1 mg Benlysta 200 mg sc every week [facility] Medical History (Updated 11/18/24 @ 07:49 by America Barrera MD) Vitamin D deficiency Greater trochanteric bursitis of both hips Lupus (systemic lupus erythematosus) Osteoarthritis of lumbosacral spine Osteoarthritis of both knees Nail abnormalities Sjogren's syndrome Surgical History Hx of appendectomy Hx of cholecystectomy Social History Household Members: Spouse Both parents involved: No Caregiver staying overnight: No Housing: House Are you a primary healthcare network pricing consultant to a significant other at home: No Do you presently have visiting nurse or other home services: No 75 years or older and lives alone: No Alcohol intake: current Alcohol intake frequency: holidays/special occasions only Alcohol type: hard liquor Patient Tobacco Use Status: Former Tobacco user Years Smoked: quit 1 1/2 years ago Review of Systems Const Details: Review of Systems Constitutional: Denies fever, chills, weight loss ENT: Denies vision changes, eye pain or eye redness, dental caries, dry mouth GI: Denies nausea, vomiting, diarrhea, abdominal pain, change in BM Pulm: Denies SOB, ROMO, hemoptysis, wheezing Cards: Denies chest pain, palpitations Skin: Denies Raynaud's, nail changes, photosensitivity, LIME MIXER: Denies headaches, weakness, paresthesias, recurrent falls MSK: as per HPI All other systems reviewed and are unremarkable except noted above Physical Exam Vital Signs: Last Vital Signs Pulse 68 12/16/24 10:46 BP 132/84 12/16/24 10:46 Pulse Ox 99 12/16/24 10:46 Oxygen Delivery Method Room Air 12/16/24 10:46 BMI result Body Mass Index 32.6 Physical Examination CONSTITUITIONAL Patient alert and cooperative. Well appearing and in no apparent painful distress HEENT Conjunctiva and sclera clear. ?Pupils equal round and reactive to light. ?No lymphadenopathy. ? CHEST/RESPIRATORY SYSTEM Normal respiratory effort and able to speak in complete sentences. ?Clear to auscultation bilaterally. ?No crackles, rales, rhonchi, wheezes heard. CARDIAC SYSTEM Regular rate and rhythm. ?S1 and S2 heard no murmurs. 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 No deformities noted. ?No tenderness to palpation of the MCPs or PIPs Wrists: ?Full range of motion at the wrists without pain. ?No tenderness of the wrists Elbows: Full range of motion without pain. No tenderness, weakness, swelling, increased warmth or erythema. Shoulders: Full range of motion without pain. No tenderness, weakness, swelling, increased warmth or erythema. Hips: Full range of motion without pain. Hip bursa: Resolved Knees: ?Full range of motion. ?No tenderness, swelling, increased warmth or erythema.?No effusion or crepitations Ankles: Full range of motion. ?No tenderness, swelling, increased warmth or erythema.? Feet: ?Negative squeeze test. ?No tenderness to palpation or swelling of the MTPs. Tender points:?No tenderness to palpation of the bilateral trapezius, supraspinatus, anterior costochondral junctions, bilateral gluteal areas, bilateral suboccipital muscle insertions SKIN Improved malar rash and improved chilblains rash Results Reviewed Results Reviewed: Laboratory Tests 11/12/24 11/12/24 10:03 Unknown WBC 8.0 RBC 4.82 Hgb 15.2 Hct 44.0 Plt Count 253 ESR 6 Sodium 142 Potassium 4.0 Chloride 109 H Carbon Dioxide 25 BUN 11 Creatinine 0.73 Total Bilirubin 0.5 AST 51 H ALT 99 H Alkaline Phosphatase 92 C-Reactive Protein 0.65 H 25-OH Vitamin D Total 14 L LOGAN Screen NEGATIVE SS-B/La Antibody >8.0 POS A Complement C3 162 Complement C4 27 Assessment & Plan Assessment & Plan (1) Lupus (systemic lupus erythematosus): Comment: Onset 2014: with pos LOGAN, pos SS-B, sicca symptoms, malar rash. hydroxychloroquine, started 2018 methotrexate added, Humira added 06/2021 - not helpful, ran out of Humira and methotrexate early 2021. 12/2021 restarted methotrexate and Humira 08/25 Mtx decreased and Humira continued 08/25 - 11/2024 lost to follow up 11/2024: Humira discontinued, MTx increased, Benlysta started Code(s): M32.9 - Systemic lupus erythematosus, unspecified Category: Medical Qualifiers: Systemic lupus erythematosus type: unspecified Systemic lupus erythematosus organ involvement: unspecified Qualified Code(s): M32.9 - Systemic lupus erythematosus, unspecified Plan: #Lupus Patient is a 59-year-old female with lupus that has improved on the increase in methotrexate and prednisolone taper. Has not received the Benlysta as questions had to be submitted to the insurance 12/15/2024 Patient reports feeling so much better hopefully she will get the Benlysta soon We need to repeat CMP ESR and CRP today given her transaminitis noted on the last blood work. 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 Limit alcohol and avoid Bactrim ? Monitoring: ?CBC, BMP, LFTs every 3-4 months and hepatitis serologies as needed (4) detention current use of immunosuppressive drug: Code(s): Z79.899 - Other retirement (current) drug therapy Category: Medical Plan: #Long-term Current Use of Belimumab Discussed with patient the benefits and risks of Belimumab for managing her lupus Benefits include reduced pain, reduced mortality, maintenance of remission and reduction of flares Risks include diarrhea, worsening depression, insomnia, worsening infections and heart problems ? Monitoring: ?CBC, BMP, LFTs every 3-4 months as needed Plan I spent 20 minutes reviewing the record and labs, taking a history, examining the patient, discussing the treatment plan and documenting in the medical record Orders: Orders Comprehensive Met. Panel Today M32.9 - Systemic lupus erythematosus, unspecified C Reactive Protein Today M32.9 - Systemic lupus erythematosus, unspecified Erythrocyte Sedimentation Rate Today M32.9 - Systemic lupus erythematosus, unspecified Coding Level of Care Code Est Pt Level 3 (74176) Complex EM visit Add On G2211 Diagnoses Systemic lupus erythematosus, unspecified SLE type, unspecified organ involvement status M32.9 Systemic lupus erythematosus type: unspecified Systemic lupus erythematosus organ involvement: unspecified Greater trochanteric bursitis of both hips M70.61; M70.62 detention methotrexate user Z79.899 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
[2024-12-16 10:46] VITALS: BP 132/84; PULSE 68; O2SAT 99; BMI 32.6
--- OUTSIDE RECORDS SUMMARY | 2024-12-16 12:21 | XMS_ITS | Data Portability ---
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 MUST MEET 2 OUT OF 3 ELEMENTS: PROBLEMS, DATA OR RISK ELEMENT 1: PROBLEMS ADDRESSED 1 OR MORE CHRONIC ILLNESS WITH EXACERBATION OR 2 OR MORE STABLE CHRONIC ILLNESSES OR 1 UNDIAGNOSED NEW PROBLEM OR 1 ACUTE ILLNESS W/SYMPTOMS OR 1 ACUTE COMPLICATED INJURY ELEMENT 2: DATA MUST MEET 1 OF 3 CATEGORIES CATEGORY 1: REVIEW OF PRIOR EXTERNAL NOTES, REVIEW OF RESULTS, ORDERING OF EACH TEST, ASSESSMENT REQUIRING INDEPENDENT HISTORIAN OR CATEGORY 2: INDEPENDENT INTERPRETATION OF TESTS BY ANOTHER PHYSICIAN OR SPECIALIST OR CATEGORY 3: DISCUSSION OF MGT OR TEST INTERPRETATION W/EXTERNAL PHYSICIAN OR SPECIALIST ELEMENT 3: RISK RISK OF COMPLICATIONS AND/OR MORBIDITY OR MORTALITY OF PATIENT MANAGEMENT PROVIDER MUST THOROUGHLY DOCUMENT EACH ELEMENT THAT IS COVERED Not available 09/05/2022 16:26:53 Plan of Treatment Reminders Order Date Submit Date Provider Last Modified By Organization Details Last Modified Time Details Appointments None recorded. Lab LOGAN (antinuclea r antibodies) screen, serum 2019 020 [facility], [address] [place] [address], [place], [address], 0 09:09:41 Referral gastroenter ologist referral 2021 022 [facility], [address] [place] [address], [address], 2 08:46:27 Procedures None recorded. Surgeries None recorded. Imaging CT, hip, w/o contrast 02/28/ 2020 02/28/2 020 GARY Not available 0 08:17:39 Medication Orders None recorded. Patient TargetsNo targets recorded. 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 [facility] ([facility]) [address], [place], [address], 01/01/2020 16:05:03 12/14/19 20 12/11/2019 XR, hip, unila teral , 2 or 3 view No observ ation record ed. [facility] ([facility]) [address], [place], [address], 01/01/2020 16:05:03 01/07/20 20 01/07/2020 CT, hip, w/o contr ast No observ ation record ed. [address], [address], 01/08/2020 09:19:19 06/15/20 21 06/14/2021 MAMMO , scree alberto, digit al, bilat eral No observ ation record ed. [facility] [address] [facility], [place], [address], 06/15/2021 13:47:51 11/16/19 23 11/16/2022 XR, sinus es, paran jazlyn, 3 or more view No observ ation record ed. [facility] (Medical Records) [address] [place], [address], 11/20/2022 15:56:10 Result Notes None recorded. Problems Name Problem SNOMED Code Status Onset Date Resolution Date Notes Provider Name and Address Organization Details Recorded Time Allergic rhinitis 72565011 Active 2017 Not Available [facility] 0 12:13:40 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 923366666 Active 2018 Not Available [facility] 0 12:13:40 Keratocon junctivit is sicca, in Sj? ? ?gren's syndrome 20873684 Active 2019 Not Available [facility] 0 12:13:40 Bilateral hip joint pain 104896172133 60796 Active 2019 Not Available [facility] 0 12:13:40 skilled nursing methotrex ate user 046329185274 Active 2019 Not Available [facility] 0 12:13:40 COVID-19 614360620 Active 2021 TRISTIN MCFARLANE [address] [place] [address], [address], [facility] 2 16:59:56 Systemic lupus erythemat osus 97083440 Active 2021 Teo Jeter DO [address] [place] [address], [address], [facility] 2 16:23:06 Chronic sinusitis 62609023 Active 2022 TRISTIN [address]ARLANE [address] [place] [address], [phone], [facility] 3 14:52:54 Problem Notes None recorded. Procedures Surgical History None recorded. Imaging Results Imaging Date Name Status LastModified by Organiz ation Details LastModified Time 12/11/2019 LDXR, hip, bilateral, 2 view completed [address]) [address], [place], [address], 01/01/2020 16:05:03 12/11/2019 XR, hip, unilateral, 2 or 3 view completed [address] ([facility]) [address], [place], [address], 01/01/2020 16:05:03 01/07/2020 CT, hip, w/o contrast completed [facility] [address] [facility], [place], [address], 01/08/2020 09:19:19 06/14/2021 MAMMO, screening, digital, bilateral completed [facility] [address] [facility], [place], [address], 06/15/2021 13:47:51 11/16/2022 XR, sinuses, paranasal, 3 or more view completed [facility] (Medical Records) [address] [facility], [place], [address], 11/20/2022 15:56:10 Procedure Notes None recorded. Medical Equipment None Reported. Allergies Allergen ID Allergen Name Allergen Category Reaction Reaction Severity Criticality Documentation Date Start Date Code Code System Note Provider Name and Address Organization Details Recorded Time 2322 Levaquin medicatio n Not available Not available Not available 07/28/2018 19375 2 RxNorm Mariely mayer [place] - [facility] 8 13:54:22 Medications Name Sig Start Date Stop Date Status Note LastModified by Organization Details LastModified Time budesonide 32 mcg/actuati on nasal spray SHAKE LIQUID AND USE 1 SPRAY IN EACH NOSTRIL EVERY DAY active Not Available Not Available No t Available prednisone 10 mg tablet 4 tabs x 2 days3 tabs x 2 days 2 tabs x 2 days1 tab x 2 days 07/29 completed Not Available Not Available Not Available azithromyci n 250 mg tablet FOLLOW PACKAGE DIRECTION S active Not Available Not Available No t Available fluconazole 150 mg tablet TAKE 1 TABLET BY MOUTH TODAY THEN TAKE 1 TABLET BY MOUTH IN 72 HOURS IF NEEDED active Not Available Not Available No t Available valacyclovi r 1 gram tablet Take 1 tablet every 8 hours by oral route for 7 days. 09/05 completed Not Available Not Available Not Available prednisone 5 mg tablet 01/01 completed Not Available Not Available Not Available acetaminoph en ER 650 mg tablet,exte nded release TAKE 1 TABLET BY MOUTH EVERY 8 HOURS NEEDED FOR PAIN 09/05 completed Not Available Not Available Not Available methotrexat e sodium 2.5 mg tablet TAKE 3 TABLETS BY MOUTH EVERY WEEK active Not Available Not Available No t Available folic acid 1 mg tablet TAKE 1 TABLET BY MOUTH DAILY active Not Available Not Available No t Available lorazepam 1 mg tablet TAKE 1 TABLET BY MOUTH THE NIGHT BEFORE THE APPT AND 1 TABLET 2 HOURS PRIOR TO APPT 09/05 completed Not Available Not Available Not Available hydroxychlo roquine 200 mg tablet TAKE 1 TABLET BY MOUTH TWICE DAILY active Not Available Not Available No t Available methylpredn isolone 4 mg tablets in a dose pack FOLLOW PACKAGE DIRECTION S active Not Available Not Available No t Available doxycycline hyclate 100 mg tablet TAKE 1 TABLET BY MOUTH TWICE DAILY FOR 10 DAYS active Not Available Not Available No t Available sulindac 200 mg tablet TAKE 1 TABLET BY MOUTH TWICE DAILY 09/05 completed Not Available Not Available Not Available amoxicillin 875 mg-potassiu m clavulanate 125 mg tablet TAKE 1 TABLET BY MOUTH TWICE A DAY FOR 7 DAYS 09/05 completed Not Available Not Available Not Available Tylenol PM Extra Strength 25 mg-500 mg tablet Take 1 tablet every day by oral route at bedtime. 09/05 completed Not Available Not Available Not Available Boostrix Tdap 2.5 Lf unit-8 mcg-5 Lf/0.5 mL intramuscul ar syringe 07/29 completed Not Available Not Available Not Available Humira(CF) Pen 40 mg/0.4 mL subcutaneou s kit Inject 0.4 mL every 2 weeks by subcutane ous route for 30 days. 2022 active Not Available Not Available Not Avai lable Fluarix Quad (PF) 60 mcg (15 mcg x 4)/0.5 mL IM syringe 07/29 completed Not Available Not Available Not Available Paxlovid 300 mg (150 mg x 2)-100 mg tablets in a dose pack TAKE 2 NIRMATREL VIR TABLETS AND 1 RITONAVIR TABLET TOGETHER BY MOUTH TWICE DAILY FOR 5 DAYS 09/05 completed Not Available Not Available Not Available Vitals Date Recorded Body height Body mass index (BMI) Body weight Heart rate Oxygen saturation Oxygen saturation in Arterial blood by Pulse oximetry Systolic blood pressure Diastolic blood pressure Provider Name and Address Organization Details Last Updated DateTime 0 169.55 cm 33.6 kg/m2 40034.8 2 g 83 /min 98 % 98 % 120 mm[Hg] 80 mm[Hg] [facility] 0 15:46:02 Date Recorded Body height Heart rate Oxygen saturation Oxygen saturation in Arterial blood by Pulse oximetry Systolic blood pressure Diastolic blood pressure Provider Name and Address Organization Details Last Updated DateTime 0 169.55 cm 74 /min 98 % 98 % 140 mm[Hg] 80 mm[Hg] [facility] 0 11:44:50 Date Recorded Body height Body mass index (BMI) Body weight Heart rate Oxygen saturation Oxygen saturation in Arterial blood by Pulse oximetry Systolic blood pressure Diastolic blood pressure Provider Name and Address Organization Details Last Updated DateTime 2 169.55 cm 34.9 kg/m2 509966. 35 g 79 /min 99 % 99 % 128 mm[Hg] 80 mm[Hg] Teo Jeter DO [address] [place], [address], [facility] 2 15:49:08 Social History Question Answer Notes LastModified by Organizat ion Details LastModified Time Tobacco Smoking Status Current Every Day Smoker Not Available [facility] 09/06/2020 03:36:24 What Was The Date Of Your Most Recent Tobacco Screening? 09/05/2022 Information n ot available 09/08/2022 How Much Tobacco Do You Smoke? 0.25 PPD [id number] Information not available 09/06/2020 Do You Or Have You Ever Used Any Other Forms Of Tobacco Or Nicotine? No Information not available 09/05/2022 Sex: Female Functional Status None recorded. Mental Status None recorded. Family History Nothing Reported. Medical History No medical history recorded. Gynecological HistoryNo gynecological history recorded. Obstetrics History GPAL:G 0 P 0 0 0 0 Immunizations Vaccine Type Date Status Note Provider Nam e and Address Organization Details Recorded Time Tdap 0 completed Teo Jeter DO [address] [place], [address], [facility] 07/09/2020 18:02:00 Influenza, split virus, quadrivalent, preservative 0 completed Teo Griggs Steffany, [address] [place], [address], [facility] 07/09/2020 18:02:08 Past Encounters Encounter ID Performer Location Encounter Start Date Encounter Closed Date Diagnosis/Indication Diagnosis SNOMED-CT Code Diagnosis ICD10 Code Diagnosis Note [id number] Teo Jeter DO [facility] [address] [facility] [address] 01/01/2020 15:31:03 01/01/2020 16:23:48 Bilateral hip joint pain 7931211814 6508865 M25.552 quite severe and not getting better despite using sulindac will alena get CT of left hip Primary Sj ? ? ?gren's syndrome 569357785 M35.00 following rhewum on MTx states has been good except for hip pain Keratoconj unctivitis sicca, in Sj? ? 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 [id number] 00 Z79.899 gets periodic lab [id number] TRISTIN [address]ARLANE [facility] [address] [facility] [address] 07/29/2020 11:32:31 08/01/2020 09:10:35 Herpes zoster 4525736 B02.9 continue medication plan will see eye doctor and have vision checked and see if any other recommenda tions are added to plan [id number] Teo Jeter DO [facility] [address] [facility] [address] 09/05/2022 15:22:55 09/06/2022 08:47:05 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 982668354 M35.00 following rheum on MTx states has been good except for hip pain but thuis is better now Active or passive immunization 149784480 Z23 patient advised she is due for flu shot Systemic l upus erythematosus 41977688 M32.9 i believe she has lupus and that she fits the diagnosis and is certainly NOT fibromyalg ia as discussed by the newest rheumatolo gist so we will look for a second op Screening for malignant neoplasm of colon 270185652 Z12.11 Health Concerns Section Related Observation LastModified by Organization Detai ls LastModified Time None Recorded Concern Status LastModified by Organization Details LastModified Time None Recorded Advance Directives Directive None Recorded Payers Encounter Date Sequence Insurance Name Policy Number Policy Miranda Covered Member ID Miranda Member ID Guarantor Name 01/01/2020 1 [place] [id number] Blanca Gwyn [id number] Blanca Gwyn 07/29/2020 1 [place] [id number] Blanca Gwyn [id number] Lbanca Gwyn 09/05/2022 1 [place] [id number] Blanca Gwyn [id number] Blanca Gwyn Notes Date Note Type Note Provider Name a nd Address Organization Details Recorded Time 01/01/2020 text/html here for rechk still in a lot of pain and is doing her best to work through it she is on MTX for SS and is followed by her principal developer appt in february Teo Jeter, DO [address] [facility], [place], [address], [facility] 01/01/2020 16:18:14 07/29/2020 text/html shingles the patient called the supervisor agricultural education service number on about a rash that started on scalp of the left side and moved over the left side of the face into her eye the patient stated the rash is sensitive and pustular in nature, like blister very red and irritated looking called rheum and they said they were concerned about shingles, stated that they rheum was out until next week and to call PCP due to nature of the rash the patient described, was concerned it could be opthalmic zoster abd started her immediately on pred taper and valtrex and told patient to come into office today TODAY: patient is in visual distress patient states rash is very painful, though no worse from yesterday unable to touch in due to pain concerned mostly about vision as she states her left eye, her vision is blurry immediately set up with optho to check vision continued on treatment plan no fever, no cough, no chest pain, no sob, no abd pain, no n/d/v TRISTIN MCFARLANE [address] [place], [address], [facility] 08/01/2020 09:30:21 09/05/2022 text/html here for rechkdo ing ok overall but has been stiff and uncomfortable at times and has been bounced from principal developer to 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 with sjogrensshe had been on humira and has been having to pay for the drugstill on plaquenil Teo Jeter, [address] [place], [address], [facility] 09/05/2022 16:28:48 OBGyn Episode No OBEpisode recorded.
== END 2024-12-16 11:14 | disposition home or self-care (01) ==
PROVIDERS: PCP Family Medicine; Visit Provider Student in an Organized Health Care Education/Training Program
DX: M32.9 Systemic lupus erythematosus, unspecified (principal); M70.61 Trochanteric bursitis, right hip; M70.62 Trochanteric bursitis, left hip; Z79.899 Other long term (current) drug therapy
CPT/HCPCS: 99213

== ENCOUNTER → 2024-12-16 10:35 | Outpatient (BNVA) | payer BC, SELFPAY | PROVIDERS: PCP Family Medicine; Visit Provider Student in an Organized Health Care Education/Training Program ==

== ENCOUNTER 2024-12-24 07:48 | Outpatient (REF) | payer BC, SELFPAY ==
--- OUTSIDE RECORDS SUMMARY | 2024-12-24 07:52 | XMS_ITS | Data Portability ---
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 Surgeries None recorded. Imaging CT, hip, w/o contrast 02/28/ 2020 02/28/2 020 GARY Not available 0 08:17:39 Medication Orders None recorded. Patient TargetsNo targets recorded. 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 [facility] ([facility]) [address], [place], [address], 01/01/2020 16:05:03 12/14/19 20 12/11/2019 XR, hip, unila teral , 2 or 3 view No observ ation record ed. [facility] ([facility]) [address], [place], [address], 01/01/2020 16:05:03 01/07/20 20 01/07/2020 CT, hip, w/o contr ast No observ ation record ed. [address], [address], 01/08/2020 09:19:19 06/15/20 21 06/14/2021 MAMMO , scree alberto, digit al, bilat eral No observ ation record ed. [facility] [address] [facility], [place], [address], 06/15/2021 13:47:51 11/16/19 23 11/16/2022 XR, sinus es, paran jazlyn, 3 or more view No observ ation record ed. [facility] (Medical Records) [address] [place], [address], 11/20/2022 15:56:10 Result Notes None recorded. 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 ? ?gren's syndrome 30509360 Active 2019 Not Available [facility] 0 12:13:40 Bilateral hip joint pain 198143846920 77351 Active 2019 Not Available [facility] 0 12:13:40 longterm methotrex ate user 576120673780 Active 2019 Not Available [facility] 0 12:13:40 COVID-19 921726844 Active 2021 TRISTIN [address] [place] [address], [address], [facility] 2 16:59:56 Systemic lupus erythemat osus 31372359 Active 2021 Teo Jeter DO [address] [place] [address], [address], [facility] 2 16:23:06 Chronic sinusitis 03730461 Active 2022 TRISTIN MCFAR[address] [place] [address], [address], [facility] 3 14:52:54 Problem Notes None recorded. Procedures Surgical History None recorded. Imaging Results Imaging Date Name Status LastModified by Organiz ation Details LastModified Time 12/11/2019 LDXR, hip, bilateral, 2 view completed [address]) [address], [place], [address], 01/01/2020 16:05:03 12/11/2019 XR, hip, unilateral, 2 or 3 view completed [address] ([facility]) [address], [place], [address], 01/01/2020 16:05:03 01/07/2020 CT, hip, w/o contrast completed [facility] [address] [facility], [place], [address], 01/08/2020 09:19:19 06/14/2021 MAMMO, screening, digital, bilateral completed [facility] [address] [facility], [place], [address], 06/15/2021 13:47:51 11/16/2022 XR, sinuses, paranasal, 3 or more view completed [facility] (Medical Records) [address] [facility], [place], [address], 11/20/2022 15:56:10 Procedure Notes None recorded. Medical Equipment None Reported. Allergies Allergen ID Allergen Name Allergen Category Reaction Reaction Severity Criticality Documentation Date Start Date Code Code System Note Provider Name and Address Organization Details Recorded Time 2322 Levaquin medicatio n Not available Not available Not available 07/28/2018 39968 2 RxNorm Mariely mayer [place] - [facility] 8 13:54:22 Medications Name Sig [...] Updated DateTime 0 169.55 cm 33.6 kg/m2 95350.8 2 g 83 /min 98 % 98 % 120 mm[Hg] 80 mm[Hg] [facility] 0 15:46:02 Date Recorded Body height Heart rate Oxygen saturation Oxygen saturation in Arterial blood by Pulse oximetry Systolic blood pressure Diastolic blood pressure Provider Name and Address Organization Details Last Updated DateTime 0 169.55 cm 74 /min 98 % 98 % 140 mm[Hg] 80 mm[Hg] [facility] 0 11:44:50 Date Recorded Body height Body mass index (BMI) Body weight Heart rate Oxygen saturation Oxygen saturation in Arterial blood by Pulse oximetry Systolic blood pressure Diastolic blood pressure Provider Name and Address Organization Details Last Updated DateTime 2 169.55 cm 34.9 kg/m2 864727. 35 g 79 /min 99 % 99 % 128 mm[Hg] 80 mm[Hg] Teo Jeter DO [address] [place], [address], [facility] 2 15:49:08 Social History Question Answer Notes LastModified by Organizat ion Details LastModified Time Tobacco Smoking Status Current Every Day Smoker Not Available [facility] 09/06/2020 03:36:24 What Was The Date Of Your Most Recent Tobacco Screening? 09/05/2022 Information n ot available 09/08/2022 How Much Tobacco Do You Smoke? 0.25 PPD [id number] Information not available 09/06/2020 Do You Or [...] Tdap 0 completed Teo Jeter DO [address] [place], [address], [facility] 07/09/2020 18:02:00 Influenza, split virus, quadrivalent, preservative 0 completed Teo Griggs Steffany, [address] [place], [address], [facility] 07/09/2020 18:02:08 Past Encounters Encounter ID Performer Location Encounter Start Date Encounter Closed Date Diagnosis/Indication Diagnosis SNOMED-CT Code Diagnosis ICD10 Code Diagnosis Note [id number] Teo Jeter DO [facility] [address] [facility],[place] [address] 01/01/2020 15:31:03 01/01/2020 16:23:48 Bilateral hip joint pain 1235548694 9247621 M25.552 quite severe and not getting better despite using sulindac will alena get CT of left hip Primary Sj ? ? ?gren's syndrome 313925462 M35.00 following rhewum on MTx states has been good except for hip pain Keratoconj unctivitis sicca, in Sj? ? 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 220872950 M35.00 following rheum on MTx states has been good except for hip pain but thuis is better now Active or passive immunization 465166280 Z23 patient advised she is due for flu shot Systemic l upus erythematosus 07855770 M32.9 i believe she has lupus and that she fits the diagnosis and is certainly NOT fibromyalg ia as discussed by the newest rheumatolo gist so we will look for a second op Screening for malignant neoplasm of colon 618378100 Z12.11 Health Concerns Section Related Observation LastModified by Organization Detai ls LastModified Time None Recorded Concern Status LastModified by Organization Details LastModified Time None Recorded Advance Directives Directive None Recorded Payers Encounter Date Sequence Insurance Name Policy Number Policy Miranda Covered Member ID Miranda Member ID Guarantor Name 01/01/2020 1 [place] [id number] Blanca Gwyn [id number] Blanca Gwyn 07/29/2020 1 [place] [id number] Blanca Gwyn [id number] 96 Blanca Gwyn 09/05/2022 1 [place] [id number] Blanca Gwyn [id number] 96 Blanca Gwyn Notes Date Note Type Note Provider Name a nd Address Organization Details Recorded Time 01/01/2020 text/html here for rechk still in a lot of pain and is doing her best to work through it she is on MTX for SS and is followed by her software engineer web applications appt in february Teo Jeter, DO [address] [facility], [place], [address], [facility] 01/01/2020 16:18:14 07/29/2020 text/html shingles the patient called the electroneurodiagnostic technologist service number on about a rash that [...] abd pain, no n/d/v TRISTIN MCFARLANE [address] [place], [address], [facility] 08/01/2020 09:30:21 09/05/2022 text/html here for rechkdo ing ok overall but has been stiff and uncomfortable at times and has been bounced from software engineer web applications to 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 with sjogrensshe had been on humira and has been having to pay for the drugstill on plaquenil Teo Jeter, [address] [place], [address], [facility] 09/05/2022 16:28:48 OBGyn Episode No OBEpisode recorded.
[2024-12-24 09:02] LABS: Alanine Aminotransferase 28 U/L (0-31); Albumin Level 4.2 g/dL (3.5-5.0); Alkaline Phosphatase 87 U/L (39-117); Anion Gap 12 (12-20); Aspartate Amino Transferase 24 U/L (5-31); Bilirubin Total 0.4 mg/dL (0.0-1.0); Blood Urea Nitrogen 12 mg/dL (9-16); C Reactive Protein 0.46 mg/dL (< or = 0.50); Calcium 9.3 mg/dL (8.4-10.2); Carbon Dioxide 28 mmol/L (22-29); Chloride 109 mmol/L (96-108); Estimated Glomerular Filt Rate > 60; Glucose Random 96 mg/dL (60-115); Potassium 4.5 mmol/L (3.3-5.1); Sodium 144 mmol/L (135-145); Total Protein 7.2 g/dL (6.5-8.0)
[2024-12-24 09:05] LABS: Erythrocyte Sedimentation Rate 9 MM/HR (0-20)
[2024-12-24 09:29] LABS: Rheumatoid Factor < 13.0 IU/mL (<15.0)
[2024-12-25 22:43] LABS: Cyclic Citrullinated Peptide <16 UNITS
== END 2024-12-24 07:49 | disposition home or self-care (01) ==
LOC: HO.LAB 07:48
PROVIDERS: PCP Student in an Organized Health Care Education/Training Program; Visit Provider Student in an Organized Health Care Education/Training Program
DX: M32.9 Systemic lupus erythematosus, unspecified (principal); M19.049 Primary osteoarthritis, unspecified hand
CPT/HCPCS: 36415; 80053; 85652; 86140; 86200; 86431

== ENCOUNTER 2025-03-22 09:56 | Outpatient (REF) | payer BC, SELFPAY ==
--- OUTSIDE RECORDS SUMMARY | 2025-03-22 10:22 | XMS_ITS | Data Portability ---
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 Surgeries None recorded. Imaging CT, hip, w/o contrast 02/28/ 2020 02/28/2 020 GARY Not available 0 08:17:39 Medication Orders None recorded. Patient TargetsNo targets recorded. 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 [facility] ([facility]) [address], [place], [address], 01/01/2020 16:05:03 12/14/19 20 12/11/2019 XR, hip, unila teral , 2 or 3 view No observ ation record ed. [facility] ([facility]) [address], [place], [address], 01/01/2020 16:05:03 01/07/20 20 01/07/2020 CT, hip, w/o contr ast No observ ation record ed. [address], [address], 01/08/2020 09:19:19 06/15/20 21 06/14/2021 MAMMO , scree alberto, digit al, bilat eral No observ ation record ed. [facility] [address] [facility], [place], [address], 06/15/2021 13:47:51 11/16/19 23 11/16/2022 XR, sinus es, paran jazlyn, 3 or more view No observ ation record ed. [facility] (Medical Records) [address] [place], [address], 11/20/2022 15:56:10 Result Notes None recorded. 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 ? ?gren's syndrome 62603414 Active 2019 Not Available [facility] 0 12:13:40 Pain of bilateral hip joints 733078239088 19225 Active 2019 Not Available [facility] 0 12:13:40 intermediate methotrex ate user 555818937020 Active 2019 Not Available [facility] 0 12:13:40 COVID-19 739908380 Active 2021 TRISTIN MCFARL[address] [place] [address], [address], [facility] [place], [facility] 2 16:59:56 Systemic lupus erythemat osus 20836228 Active 2021 Teo Jeter DO [address] [place], [address], [facility] [place], [facility] 2 16:23:06 Chronic sinusitis 00084531 Active 2022 TRISTIN MCFARL[address] [place] [address], [address], [facility] [place], operated [facility] 3 14:52:54 Problem Notes None recorded. Procedures Surgical History None recorded. Imaging Results Imaging Date Name Status LastModified by Organiz [facility] Details LastModified Time 12/11/2019 LDXR, hip, bilateral, 2 view completed [address]) [address], [place], [address], 01/01/2020 16:05:03 12/11/2019 XR, hip, unilateral, 2 or 3 view completed [address] [facility]) [address], [place], [address], 01/01/2020 16:05:03 01/07/2020 CT, hip, w/o contrast completed [facility] [address] [facility], [place], [address], 01/08/2020 09:19:19 06/14/2021 MAMMO, screening, digital, bilateral completed [facility] [address] [facility], [place], [address], 06/15/2021 13:47:51 11/16/2022 XR, sinuses, paranasal, 3 or more view completed [facility] (Medical Records) [address] [facility], [place], [address], 11/20/2022 15:56:10 Procedure Notes None recorded. Medical Equipment None Reported. Allergies Allergen ID Allergen Name Allergen Category Reaction Reaction Severity Criticality Documentation Date Start Date Code Code System Note Provider Name and Address Organization Details Recorded Time 2322 Levaquin medicatio n Not available Not available Not available 07/28/2018 80102 2 RxNorm Mariely mayer [place] - [facility] 8 13:54:22 Medications Name Sig [...] Updated DateTime 0 169.55 cm 33.6 kg/m2 59431.8 2 g 83 /min 98 % 98 % 120 mm[Hg] 80 mm[Hg] [facility] 0 15:46:02 Date Recorded Body height Heart rate Oxygen saturation Oxygen saturation in Arterial blood by Pulse oximetry Systolic blood pressure Diastolic blood pressure Provider Name and Address Organization Details Last Updated DateTime 0 169.55 cm 74 /min 98 % 98 % 140 mm[Hg] 80 mm[Hg] [facility] 0 11:44:50 Date Recorded Body height Body mass index (BMI) Body weight Heart rate Oxygen saturation Oxygen saturation in Arterial blood by Pulse oximetry Systolic blood pressure Diastolic blood pressure Provider Name and Address Organization Details Last Updated DateTime 2 169.55 cm 34.9 kg/m2 487753. 35 g 79 /min 99 % 99 % 128 mm[Hg] 80 mm[Hg] Teo Jeter, [address] [place] [address], [address] 2 15:49:08 Social History Question Answer Notes LastModified by Organizat ion Details LastModified Time Tobacco Smoking Status Current Every Day Smoker Not Available [facility] 09/06/2020 03:36:24 What Was The Date Of Your Most Recent Tobacco Screening? 09/05/2022 Information n ot available 09/08/2022 How Much Tobacco Do You Smoke? 0.25 PPD [id number] Information not available 09/06/2020 Sex: Female Functional Status Question Answer Note LastModified by Organization D etails LastModified Time Do you or have you ever used any other forms of tobacco or nicotine? No Information not available 09/05/2022 Mental Status None recorded. Family History Nothing Reported. Medical History No medical history recorded. Gynecological HistoryNo gynecological history recorded. Obstetrics History GPAL:G 0 P 0 0 0 0 Immunizations Vaccine Type Date Status Note Provider Nam e and Address Organization Details Recorded Time Tdap 0 completed Teo Jeter DO [address] [place], [address], [facility] [place], [facility] 07/09/2020 18:02:00 Influenza, split virus, quadrivalent, preservative 0 completed Teo Anson Jeter, [address] [place] [address], [address], [facility] [place], [facility] 07/09/2020 18:02:08 Past Encounters Encounter ID Performer Location Encounter Start Date Encounter Closed Date Diagnosis/Indication Diagnosis SNOMED-CT Code Diagnosis ICD10 Code Diagnosis Note [id number] Teo Jeter DO [facility] [address] [place] [address],[place] [address] 01/01/2020 15:31:03 01/01/2020 16:23:48 Pain of bilateral hip joints 7502085671 3303177 M25.552 quite severe and not getting better despite using sulindac will tyrto get CT of left hip Primary Sj ? ? ?gren's syndrome 182379219 M35.00 following rhewum on MTx states has been good except for hip pain Keratoconj unctivitis sicca, in Sj? ? 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 973136907 M35.00 following rheum on MTx states has been good except for hip pain but thuis is better now Active or passive immunization 349275459 Z23 patient advised she is due for flu shot Systemic l upus erythematosus 70995761 M32.9 i believe she has lupus and that she fits the diagnosis and is certainly NOT fibromyalg ia as discussed by the newest rheumatolo gist so we will look for a second op Screening for malignant neoplasm of colon 108291834 Z12.11 Health Concerns Section Related Observation LastModified by Organization Detai ls LastModified Time None Recorded Concern Status LastModified by Organization Details LastModified Time None Recorded Advance Directives Directive None Recorded Payers Encounter Date Sequence Insurance Name Policy Number Policy Miranda Covered Member ID Miranda Member ID Guarantor Name 01/01/2020 1 [place] [id number] Blanca Gwyn [id number] 96 Blanca Gwyn 07/29/2020 1 [place] [id number] Blanca Gwyn [id number] 96 Blanca Gwyn 09/05/2022 1 [place] [id number] Blanca Gwyn [id number] 96 Blanca Gwyn Notes Date Note Type Note Provider Name a nd Address Organization Details Recorded Time 01/01/2020 text/html here for rechk still in a lot of pain and is doing her best to work through it she is on MTX for SS and is followed by her 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 in february Teo Jeter, DO [address] [place] [address], [place], [address], [facility] [place], operated [facility] 01/01/2020 16:18:14 07/29/2020 text/html shingles the patient called the testing consultant service number on about a rash that [...] abd pain, no n/d/v TRISTIN MCFARLANE [address] [place], [address], [facility] [place], [facility] 08/01/2020 09:30:21 09/05/2022 text/html here for rechkdo ing ok overall but has been stiff and uncomfortable at times and has 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 with sjogrensshe had been on humira and has been having to pay for the drugstill on plaquenil Teo Jeter, [address] [facility], [place], [address], [facility] [place], [facility] 09/05/2022 16:28:48 OBGyn Episode No OBEpisode recorded.
[2025-03-22 13:07] LABS: MANUAL DIFF FLAG NO
[2025-03-22 13:23] LABS: Basophils Percent Auto 0.3 % (0-2); Eosinophils Absolute Auto 0.2 X10*3/uL (0.0-0.4); Eosinophils Percent Auto 2.1 % (0-4); Hematocrit 44.9 % (37.0-47.0); Hemoglobin 15.2 g/dl (12.0-16.0); Imm Gran Abs Auto 0.03 X10*3/uL (0.00-0.03); Imm Gran Pct Auto 0.3 % (0.0-0.4); Lymphocytes Absolute Auto 3.2 X10*3/uL (1.2-4.9); Lymphocytes Percent Auto 34.4 % (20-40); Mean Corpuscular HGB Conc 33.9 g/dl (31.0-35.0); Mean Corpuscular Hemoglobin 32.1 pg (27.0-33.0); Mean Corpuscular Volume 94.9 fL (80.0-98.0); Monocytes Absolute Auto 0.6 X10*3/uL (0.1-1.2); Monocytes Percent Auto 6.4 % (2-11); Neutrophils Absolute Auto 5.2 x10*3/uL (2.0-8.3); Neutrophils Percent Auto 56.5 % (45-73); Platelet Count 267 X10*3/uL (160-400); Red Blood Count 4.73 X10*6/uL (4.20-5.50); Red Cell Distribution Width 14.2 % (11.0-16.0); White Blood Count 9.2 X10*3/uL (4.8-10.8)
[2025-03-22 13:34] LABS: Appearance Urine Clear; Color Urine Yellow; Glucose Urine UA Negative (Negative); Leukocyte Esterase Urine Negative (Negative); Nitrite Urine Negative (Negative); UMIC TRIGGER UA YES; Urine Blood Small (1+) (Negative); Urine Ketones Negative (Negative); Urine Protein Negative (Neg-Trace)
[2025-03-22 13:38] LABS: Alanine Aminotransferase 32 U/L (0-31); Albumin Level 4.4 g/dL (3.5-5.0); Alkaline Phosphatase 97 U/L (39-117); Anion Gap 11 (12-20); Aspartate Amino Transferase 28 U/L (5-31); Bilirubin Total 0.2 mg/dL (0.0-1.0); Blood Urea Nitrogen 13 mg/dL (9-16); C Reactive Protein 0.55 mg/dL (< or = 0.50); Calcium 9.4 mg/dL (8.4-10.2); Carbon Dioxide 28 mmol/L (22-29); Chloride 107 mmol/L (96-108); Estimated Glomerular Filt Rate > 60; Glucose Random 81 mg/dL (60-115); Potassium 3.9 mmol/L (3.3-5.1); Sodium 142 mmol/L (135-145)
[2025-03-22 13:45] LABS: Bacteria Urine Trace (None Seen); Hyaline Casts Urine 0-2 /LPF (0-2); RBC Urine 0-2 /HPF (0-2); WBC Urine 0-5 /HPF (0-5)
[2025-03-22 13:55] LABS: Creatinine Urine 97.22 mg/dL; Total Protein Urine Random < 7 mg/dL (<12)
[2025-03-22 14:01] LABS: Erythrocyte Sedimentation Rate 8 MM/HR (0-20)
[2025-03-24 11:04] LABS: Complement C3 177 mg/dL (83-193)
== END 2025-03-22 09:57 | disposition home or self-care (01) ==
LOC: HO.10HDL 09:56
PROVIDERS: Visit Provider Student in an Organized Health Care Education/Training Program
DX: M32.9 Systemic lupus erythematosus, unspecified (principal)
CPT/HCPCS: 36415; 80053; 81001; 82570; 84156; 85025; 85652; 86140; 86160

== ENCOUNTER 2025-03-25 07:20 | Outpatient (AMB) | payer BC, SELFPAY ==
--- OUTSIDE RECORDS SUMMARY | 2025-03-25 07:22 | XMS_ITS | Data Portability ---
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 Surgeries None recorded. Imaging CT, hip, w/o contrast 02/28/ 2020 02/28/2 020 GARY Not available 0 08:17:39 Medication Orders None recorded. Patient TargetsNo targets recorded. 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 [facility] ([facility]) [address], [place], [address], 01/01/2020 16:05:03 12/14/19 20 12/11/2019 XR, hip, unila teral , 2 or 3 view No observ ation record ed. [facility] ([facility]) [address], [place], [address], 01/01/2020 16:05:03 01/07/20 20 01/07/2020 CT, hip, w/o contr ast No observ ation record ed. [address], [address], 01/08/2020 09:19:19 06/15/20 21 06/14/2021 MAMMO , scree alberto, digit al, bilat eral No observ ation record ed. [facility] [address] [facility], [place], [address], 06/15/2021 13:47:51 11/16/19 23 11/16/2022 XR, sinus es, paran jazlyn, 3 or more view No observ ation record ed. [facility] (Medical Records) [address] [place], [address], 11/20/2022 15:56:10 Result Notes None recorded. 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 ? 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 Procedures Surgical History None recorded. Imaging Results Imaging Date Name Status LastModified by Organ[facility] Details LastModified Time 12/11/2019 LDXR, hip, bilateral, 2 view completed [address]) [address], [place], [address], 01/01/2020 16:05:03 12/11/2019 XR, hip, unilateral, 2 or 3 view completed [address] [facility] [address]) [address], [place], [address], 01/01/2020 16:05:03 01/07/2020 CT, hip, w/o contrast completed [facility] [address] [facility], [place], [address], 01/08/2020 09:19:19 06/14/2021 MAMMO, screening, digital, bilateral completed [facility] [address] [facility], [place], [address], 06/15/2021 13:47:51 11/16/2022 XR, sinuses, paranasal, 3 or more view completed [facility] (Medical Records) [address] [facility], [place], [address], 11/20/2022 15:56:10 Procedure Notes None recorded. Medical Equipment None Reported. Allergies Allergen ID Allergen Name Allergen Category Reaction Reaction Severity Criticality Documentation Date Start Date Code Code System Note Provider Name and Address Organization Details Recorded Time 2322 Levaquin medicatio n Not available Not available Not available 07/28/2018 95091 2 RxNorm Mariely mayer [place] - [facility] 8 13:54:22 Medications Name Sig [...] Updated DateTime 0 169.55 cm 33.6 kg/m2 59240.8 2 g 83 /min 98 % 98 % 120 mm[Hg] 80 mm[Hg] Jael [facility] 0 15:46:02 Date Recorded Body height Heart rate Oxygen saturation Oxygen saturation in Arterial blood by Pulse oximetry Systolic blood pressure Diastolic blood pressure Provider Name and Address Organization Details Last Updated DateTime 0 169.55 cm 74 /min 98 % 98 % 140 mm[Hg] 80 mm[Hg] Jael [facility] 0 11:44:50 Date Recorded Body height Body mass index (BMI) Body weight Heart rate Oxygen saturation Oxygen saturation in Arterial blood by Pulse oximetry Systolic blood pressure Diastolic blood pressure Provider Name and Address Organization Details Last Updated DateTime 2 169.55 cm 34.9 kg/m2 793333. 35 g 79 /min 99 % 99 % 128 mm[Hg] 80 mm[Hg] Teo Jeter, [address] [place] [address], [phone] [facility] 2 15:49:08 Social History Question Answer Notes LastModified by Organizat ion Details LastModified Time Tobacco Smoking Status Current Every Day Smoker Not Available [facility] 09/06/2020 03:36:24 What Was The Date Of Your Most Recent Tobacco Screening? 09/05/2022 Information n ot available 09/08/2022 How Much Tobacco Do You Smoke? 0.25 PPD [id number] Information not available 09/06/2020 Sex: Female Functional [...] Tdap 0 completed Teo Jeter DO [address] [place], [address], [facility] 07/09/2020 18:02:00 Influenza, split virus, quadrivalent, preservative 0 completed Teo Anson Jeter, [address] [place] [address], [address], [facility] 07/09/2020 18:02:08 Past Encounters Encounter ID Performer Location Encounter Start Date Encounter Closed Date Diagnosis/Indication Diagnosis SNOMED-CT Code Diagnosis ICD10 Code Diagnosis Note [id number] Teo Jeter DO [facility] [address] [place] [address],[place] [address] 01/01/2020 15:31:03 01/01/2020 16:23:48 Pain of bilateral hip joints 0937201053 8630075 M25.552 quite severe and not getting better despite using sulindac will tyrto get CT of left hip Primary Sj ? ? ?gren's syndrome 967425021 M35.00 following rhewum on MTx states has been good except for hip pain Keratoconj unctivitis sicca, in Sj? ? 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 874899253 M35.00 following rheum on MTx states has been good except for hip pain but thuis is better now Active or passive immunization 904478319 Z23 patient advised she is due for flu shot Systemic l upus erythematosus 53767540 M32.9 i believe she has lupus and that she fits the diagnosis and is certainly NOT fibromyalg ia as discussed by the newest rheumatolo gist so we will look for a second op Screening for malignant neoplasm of colon 759164798 Z12.11 Health Concerns Section Related Observation LastModified by Organization Detai ls LastModified Time None Recorded Concern Status LastModified by Organization Details LastModified Time None Recorded Advance Directives Directive None Recorded Payers Encounter Date Sequence Insurance Name Policy Number Policy Miranda Covered Member ID Miranda Member ID Guarantor Name 01/01/2020 1 [employer] [id number] Blanca Gwyn [id number] Blanca Gwyn 07/29/2020 1 [place] [id number] Blanca Gwyn [id number] Blanca Gwyn 09/05/2022 1 [place] [id number] Blanca Gwyn [id number] Blanca Gwyn Notes Date Note Type Note Provider Name a nd Address Organization Details Recorded Time 01/01/2020 text/html here for rechk still in a lot of pain and is doing her best to work through it she is on MTX for SS and is 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 Teo Jeter, DO [address] [place] [address], [place], [address], [facility] 01/01/2020 16:18:14 07/29/2020 text/html shingles the patient called the executive consultant service number on about a rash [...] sob, no abd pain, no n/d/v TRISTIN MCFRALANE [address] [place], [address], [facility] 08/01/2020 09:30:21 09/05/2022 text/html here for rechkdo ing ok overall but has been stiff and uncomfortable at times and has been bounced 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 with sjogrensshe had been on humira and has been having to pay for the drugstill on plaquenil Teo Jeter, [address] [facility], [place], [address], [facility] 09/05/2022 16:28:48 OBGyn Episode No OBEpisode recorded.
--- NOTE | 2025-03-25 07:30 | A.OFFVIS_ITS ---
Vital Signs 03/25/25 07:35 Height 5 ft 8 in Weight 217 lb 2.485 oz BMI 33.0 BP 142/100 H Blood Pressure Location Rt brachial Position Sitting Pulse 66 Pulse Source Pulse Oximeter Pulse Oximetry (%) 98 Oxygen Delivery Method Room Air Intake Visit Reasons: RA Intake Note: Patient presents for RA follow up. Allergies levofloxacin [From LEVAQUIN] Allergy (Severe, Verified 03/25/25 07:34) ANAPHYLAXIS ENVIRONMENTAL Allergy (Mild, Uncoded 11/12/24 08:13) SINSUS CONGESTION, ITCHY/WATERY EYES Medication List - Last Reconciled 03/25/25 by America Barrera MD acetaminophen ER (Mapap Arthritis Pain) 650 mg PO Q8H PRN belimumab (Benlysta) 200 mg subcut QWEEK 30 days cetirizine (Zyrtec) 10 mg PO DAILY cholecalciferol (vitamin D3) 125 mcg PO DAILY diphenhydramine-acetaminophen 25-500 mg (Tylenol PM Extra Strength) 1 tab PO BEDTIME folic acid 1 mg PO DAILY hydroxychloroquine 200 mg PO BID methotrexate sodium 20 mg (8 x 2.5 mg) PO QWEEK 90 days prednisone 5 mg PO DIRECTED triamcinolone acetonide 0.1% 1 appl topical DAILY HPI Comments Details: Patient is a 59-year-old female with asthma, polyarticular OA and lupus presents today for follow up. Interval History: Patient last seen here 12/2024 with me. At that time she was doing better with improved rash. Had not started Benlysta due to insurance issues but was doing well on her prednisone taper Today, Started Benlysta, no issues with the injections Completed prednisone taper Doing well overall No prolonged Am stiffness Rheumatologic History: Patient initially diagnosed with an autoimmune disorder back in 2015. At that time she was thought to have Sjogren's syndrome with a positive LOGAN and positive SSB. She also had some inflammatory joint pain and was started on Plaquenil and methotrexate. She was also noting malar rash the time. She was then subsequently thought to have seronegative rheumatoid arthritis and subsequently started on Humira which helped her joint pain. Her last follow up with Rheumatology was in 2022. Current Rheumatology Medication(s): Hydroxychloroquine 200mg bid Methotrexate 20mg weekly Folic acid 1 mg Benlysta 200 mg sc every week [facility] Medical History (Updated 03/25/25 @ 08:07 by America Barrera MD) Vitamin D deficiency Greater trochanteric bursitis of both hips Lupus (systemic lupus erythematosus) Osteoarthritis of lumbosacral spine Osteoarthritis of both knees Nail abnormalities Sjogren's syndrome Surgical History Hx of appendectomy Hx of cholecystectomy Social History Household Members: Spouse Both parents involved: No Caregiver staying overnight: No Housing: House Are you a primary pharmacy customer care specialist to a significant other at home: No Do you presently have visiting nurse or other home services: No 75 years or older and lives alone: No Alcohol intake: current Alcohol intake frequency: holidays/special occasions only Alcohol type: hard liquor Patient Tobacco Use Status: Former Tobacco user Years Smoked: quit 1 1/2 years ago Review of Systems Const Details: Review of Systems Constitutional: Denies fever, chills, weight loss ENT: Denies vision changes, eye pain or eye redness, dental caries, dry mouth GI: Denies nausea, vomiting, diarrhea, abdominal pain, change in BM Pulm: Denies SOB, ROMO, hemoptysis, wheezing Cards: Denies chest pain, palpitations Skin: Denies Raynaud's, rash, nail changes, photosensitivity, SOLAR PV INSTALLER: Denies headaches, weakness, paresthesias, recurrent falls MSK: as per HPI All other systems reviewed and are unremarkable except noted above Physical Exam Vital Signs: Last Vital Signs Pulse 66 03/25/25 07:35 BP 142/100 H 03/25/25 07:35 Pulse Ox 98 03/25/25 07:35 Oxygen Delivery Method Room Air 03/25/25 07:35 BMI result Body Mass Index 33.0 Vital signs reviewed Physical Examination CONSTITUITIONAL Patient alert and cooperative. Well appearing and in no apparent painful distress HEENT Conjunctiva and sclera clear. ?Pupils equal round and reactive to light. ?No lymphadenopathy. ? CHEST/RESPIRATORY SYSTEM Normal respiratory effort and able to speak in complete sentences. ?Clear to auscultation bilaterally. ?No crackles, rales, rhonchi, wheezes heard. CARDIAC SYSTEM Regular rate and rhythm. ?S1 and S2 heard no murmurs. ?Radial pulses intact bilaterally MSK Hands: ?Good rn hemo dialysis strength bilaterally. No deformities noted. ?No tenderness to palpation of the MCPs or PIPs Wrists: ?Full range of motion at the wrists without pain. ?No tenderness of the wrists Elbows: Full range of motion without pain. No tenderness, weakness, swelling, increased warmth or erythema. Shoulders: Full range of motion without pain. No tenderness, weakness, swelling, increased warmth or erythema. Knees: ?Full range of motion. ?No tenderness, swelling, increased warmth or erythema.?Crepitations Ankles: Full range of motion. ?No tenderness, swelling, increased warmth or erythema.? Feet: ?Negative squeeze test. ?No tenderness to palpation or swelling of the MTPs. Tender points:?No tenderness to palpation of the bilateral trapezius, supraspinatus, anterior costochondral junctions, bilateral gluteal areas, bilateral suboccipital muscle insertions SKIN Improved malar rash and resolves chilblains rash Results Reviewed Results Reviewed: Laboratory Tests 03/22/25 10:00 WBC 9.2 RBC 4.73 Hgb 15.2 Hct 44.9 Plt Count 267 ESR 8 Sodium 142 Potassium 3.9 Chloride 107 Carbon Dioxide 28 BUN 13 Creatinine 0.77 AST 28 ALT 32 H C-Reactive Protein 0.55 H Urine labs 03/22/25 10:00 Urine Protein Negative Urine Blood Small (1+) H U Random Total Protein < 7 Immunology Labs 03/22/25 10:00 Complement C3 177 Complement C4 30 Assessment & Plan Assessment & Plan (1) Lupus (systemic lupus erythematosus): Comment: Onset 2014: with pos LOGAN, pos SS-B, sicca symptoms, malar rash. hydroxychloroquine, started 2018 methotrexate added, Humira added 06/2021 - not helpful, ran out of Humira and methotrexate early 2021. 12/2021 restarted methotrexate and Humira 08/25 Mtx decreased and Humira continued 08/25 - 11/2024 lost to follow up 11/2024: Humira discontinued, MTx increased, Benlysta started 03/2025: Mtx decreased s/s elevated LFTs Code(s): M32.9 - Systemic lupus erythematosus, unspecified Category: Medical Qualifiers: Systemic lupus erythematosus type: unspecified Systemic lupus erythematosus organ involvement: unspecified Qualified Code(s): M32.9 - Systemic lupus erythematosus, unspecified Plan: #Lupus Patient is a 59-year-old female with lupus here today for follow up. Doing better on her methotrexate, and Benlysta combination. No longer on prednisone Elevated transaminases. 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 Limit alcohol and avoid Bactrim ? Monitoring: ?CBC, BMP, LFTs every 3-4 months and hepatitis serologies as needed (3) [facility] current use of immunosuppressive drug: Code(s): Z79.899 - Other termite exterminator (current) drug therapy Category: Medical Plan: #Long-term Current Use of Belimumab Discussed with patient the benefits and risks of Belimumab for managing her lupus Benefits include reduced pain, reduced mortality, maintenance of remission and reduction of flares Risks include diarrhea, worsening depression, insomnia, worsening infections and heart problems ? Monitoring: ?CBC, BMP, LFTs every 3-4 months as needed Plan I spent 20 minutes reviewing the record and labs, taking a history, examining the patient, discussing the treatment plan and documenting in the medical record Orders: Orders Complete Blood Count Auto Diff 4 Months M32.9 - Systemic lupus erythematosus, unspecified Complement C4 4 Months M32.9 - Systemic lupus erythematosus, unspecified Anti DNA DS Antibody 4 Months M32. - Systemic lupus erythematosus, unspecified UA w Microscopic 4 Months M32. - Systemic lupus erythematosus, unspecified Comprehensive Met. Panel 4 Months M32.9 - Systemic lupus erythematosus, unspecified C Reactive Protein 4 Months M32.9 - Systemic lupus erythematosus, unspecified Erythrocyte Sedimentation Rate 4 Months M32.9 - Systemic lupus erythematosus, unspecified Complement C3 4 Months M32. - Systemic lupus erythematosus, unspecified Protein Creatinine Ratio, Ur 4 Months M32.9 - Systemic lupus erythematosus, unspecified Medications: Changed From methotrexate sodium 20 mg (8 x 2.5 mg) PO QWEEK 90 days 104 tabs 1RF M32.9 - Systemic lupus erythematosus, unspecified To methotrexate sodium 15 mg (6 x 2.5 mg) PO QWEEK 90 days 78 tabs 1RF M32.9 - Systemic lupus erythematosus, unspecified Refilled prednisone Take 3 tablets for 10 days then 2 tablets for 10 days then 1 tablet for 10 days then stop 5 mg PO DIRECTED 90 tabs 0RF M32.9 - Systemic lupus erythematosus, unspecified folic acid 1 mg PO DAILY 90 tabs 1RF M32.9 - Systemic lupus erythematosus, unspecified belimumab (Benlysta) inject into upper thigh or abdomen; rotate sites 200 mg subcut QWEEK 30 days 5 mL 3RF M32.9 - Systemic lupus erythematosus, unspecified hydroxychloroquine 200 mg PO BID 180 tabs 1RF M35.00 - Sjogren syndrome, unspecified Coding Level of Care Code Est Pt Level 3 (58443) Complex EM visit Add On G2211 Diagnoses Systemic lupus erythematosus, unspecified SLE type, unspecified organ involvement status M32.9 Systemic lupus erythematosus type: unspecified Systemic lupus erythematosus organ involvement: unspecified 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
[2025-03-25 07:35] VITALS: BP 142/100; PULSE 66; O2SAT 98; BMI 33.0
== END 2025-03-25 07:51 | disposition home or self-care (01) ==
LOC: HO.RHE 07:21
PROVIDERS: PCP Family Medicine; Visit Provider Student in an Organized Health Care Education/Training Program
DX: M32.9 Systemic lupus erythematosus, unspecified (principal); Z79.899 Other long term (current) drug therapy
CPT/HCPCS: 99213

== ENCOUNTER → 2025-03-25 07:20 | Outpatient (BNVA) | payer BC, SELFPAY | PROVIDERS: PCP Family Medicine; Visit Provider Student in an Organized Health Care Education/Training Program ==

== ENCOUNTER 2025-07-26 13:12 | Outpatient (REF) | payer BC, SELFPAY ==
[2025-07-26 13:39] LABS: MANUAL DIFF FLAG NO
[2025-07-26 14:18] LABS: Hematocrit 44.3 % (37.0-47.0); Hemoglobin 15.2 g/dl (12.0-16.0); Imm Gran Abs Auto 0.03 X10*3/uL (0.00-0.03); Imm Gran Pct Auto 0.3 % (0.0-0.4); Lymphocytes Absolute Auto 3.4 X10*3/uL (1.2-4.9); Mean Corpuscular HGB Conc 34.3 g/dl (31.0-35.0); Mean Corpuscular Hemoglobin 31.3 pg (27.0-33.0); Mean Corpuscular Volume 91.2 fL (80.0-98.0); NRBC Abs Auto 0.000 X10*3/uL (0.0-0.012); NRBC Pct Auto 0.0 /100WBC (0.0-0.2); Platelet Count 233 X10*3/uL (160-400); Red Blood Count 4.86 X10*6/uL (4.20-5.50); White Blood Count 9.6 X10*3/uL (4.8-10.8)
[2025-07-26 14:44] LABS: Appearance Urine Clear; Glucose Urine UA Negative (Negative); PH 5.5 (5.0-9.0); Specific Gravity - Urine 1.020 (1.005-1.025); UMIC TRIGGER UA YES
[2025-07-26 14:48] LABS: Alanine Aminotransferase 26 U/L (0-31); Albumin Level 4.5 g/dL (3.5-5.0); Alkaline Phosphatase 97 U/L (39-117); Anion Gap 12 (12-20); Aspartate Amino Transferase 30 U/L (5-31); Blood Urea Nitrogen 13 mg/dL (9-16); Calcium 9.7 mg/dL (8.4-10.2); Carbon Dioxide 28 mmol/L (22-29); Chloride 106 mmol/L (96-108); Estimated Glomerular Filt Rate > 60; Potassium 4.1 mmol/L (3.3-5.1); Sodium 142 mmol/L (135-145); Total Protein 6.8 g/dL (6.5-8.0)
[2025-07-26 15:35] LABS: Protein/Creatinine Ratio, Ur 0.08 (<0.2); Total Protein Urine Random 8 mg/dL (<12)
--- OUTSIDE RECORDS SUMMARY | 2025-07-26 15:35 | XMS_ITS | Encounter Summary ---
Author Organization [facility] Address [address] [place] [address] Phone Care Team Providers Care Spinner Operator Name Role Phone Pcp, Unknown Primary Care Provider Unavailabl e Encounter Details Date Type Department Care Team (Latest Contact Info) Description 01/29/2024 Transcribe Orders [facility] [address] Floor [place], [place] [id number] Cony Hernandez, SEAM HAMMERER [address] [place] [address] Diarrhea, unspecified type (Primary Dx); Rectal bleeding Social History Tobacco Use Types Packs/Day Years Used Date Smoking Tobacco: Never Smokeless Tobacco: Never Education Answer Date Recorded Are you interested in more education? Not on carol e 03/01/2023 Are you concerned about learning? Not on file 03/01/2023 No 03/01/2023 No 03/01/2023 Digital Access Answer Date Recorded No 03/27/2023 No 03/27/2023 Reliable internet access at home? Not on file 03/27/2023 Device with a working camera? Not on file Comments Unknown Sex and Gender Information Value Date Recorded Sex Assigned at Not on file Legal Sex Female 9:41 PM EDT Gender Identity Not on file Sexual Orientation Not on file documented as of this encounter Plan of Treatment Not on file documented as of this encounter Results * Ova and parasites, stool (02/06/2024 7:00 AM EDT) Parasitic exam FINAL 4 1116 [facility] DPT OF LAB MED AND PAT+ Comment: (NOTE) SOURCE: STOOL, STLP OVA AND PARASITE, MICROSCOPY, F >120 Elevated Calprotectin in Crohn's disease and ulcerative colitis can be five to several thousand times above the reference population (50 mcg/g or less). Levels are usually 50 mcg/g or less in healthy patients and with irritable bowel syndrome. Repeat testing in 4-6 weeks is suggested for borderline values. Stool (Stool) 02/06/2024 7:0 0 AM EDT 02/07/2024 8:33 AM EDT Cony Hernandez CNP BODY FLUIDS AND STOOLS ORD ERABLES Final Result [facility] [address] [place] [address], [facility] [phone] * Stool culture (02/06/2024 7:00 AM EDT) Component Value Ref Range Test Signature Cony Hernandez SEAM HAMMERER MICROBIOLOGY - GENERAL ORD ERABLES Final Result [facility] DPT OF LAB MED AND PAT+ [address] [place] [address] * (ABNORMAL) C-Reactive Protein (01/29/2024 3:23 PM EDT) C REACTIVE PROTEIN 4.9(H) 0.0 - 4.0 mg/L [facility] POTASSIUM 4.5 3.3 - 5.1 mmol/L [facility] CHLORIDE 103 96 - 108 mmol/L [facility] CO2 28 21 - 35 mmol/L [facility] BUN 11 6 - 19 mg/dL [facility] CREATININE 0.80 0.5 - 1.5 mg/dL [facility] GLUCOSE 85 70 - 99 mg/dL [facility] Hemorrhage of rectum and anus documented in this encounter Additional Health Concerns Infection Onset Date Last Indicated Resolved Time C. diff 02/06/2024 02/06/2024 03/07/2024 1:21 AM EDT documented as of this encounter Care Teams Spinner Operator Relationship Specialty Start Date End Date Pcp, Unknown PCP - General 07/10/23 documented as of this encounter Additional Source Comments The information contained in this document represents components of the legal health record. It is not the complete legal health record.[facility]
--- OUTSIDE RECORDS SUMMARY | 2025-07-26 15:35 | XMS_ITS ---
[...] documented as of this encounter Results * US ABDOMEN LIMITED RIGHT UPPER QUADRANT (02/10/2024 7:48 AM EDT) Anatomical Region Laterality Modality Abdomen Ultrasound 02/10/2024 5:40 PM EDT Impressions 02/11/2024 5:20 AM EDT Hyperechogenic liver parenchyma, likely representing steatosis. No bile duct dilation. Narrative 02/11/2024 5:20 AM EDT US ABDOMEN LIMITED RIGHT UPPER QUADRANT Referring clinician's provided indication for this examination in [facility]: Outside Radiology Order; elevated lft's TECHNIQUE: US Abdominal limited right upper quadrant. COMPARISON: None FINDINGS: Liver: Diffusely hyperechogenic parenchyma. Simple appearing 1.1 cm cyst. No suspicious focal lesion. Main Portal Vein: Patent with normal direction of flow. Gallbladder: Cholecystectomy Biliary: No intrahepatic or extrahepatic biliary ductal dilatation. The common bile duct measures 4 mm. Procedure Note Teo Goss MD - 02/11/2024 US ABDOMEN LIMITED RIGHT UPPER QUADRANT Referring clinician's provided indication for this examination in [facility]:Outside Radiology Order; elevated lft's TECHNIQUE: US Abdominal limited right upper quadrant. COMPARISON: None FINDINGS: Liver: Diffusely hyperechogenic parenchyma. Simple appearing 1.1 cm cyst.No suspicious focal lesion. Main Portal Vein: Patent with normal direction of flow. Gallbladder: Cholecystectomy Biliary: No intrahepatic or extrahepatic biliary ductal dilatation. The common bile duct measures 4 mm. IMPRESSION: Hyperechogenic liver parenchyma, likely representing steatosis. No bile duct dilation. us Cony Hernandez LICENSING SERVICES CLERK IMG US ABDOMEN Final Resu lt documented in this encounter Visit Diagnoses Diagnosis Elevated LFTs- Primary Other abnormal blood chemistry Elevated LFTs Other abnormal blood chemistry documented in this encounter Additional Health Concerns Infection Onset Date Last Indicated Resolved Time C. diff 02/06/2024 02/06/2024 03/07/2024 1:21 AM EDT documented as of this encounter Care Teams Manager Casino Relationship Specialty Start Date End Date Pcp, Unknown PCP - General 07/10/23 documented as of this encounter Additional Source Comments The information contained in this document represents components of the legal health record. It is not the complete legal health record.[facility]
--- OUTSIDE RECORDS SUMMARY | 2025-07-26 15:36 | XMS_ITS | Clinical Summary ---
Author Organization [facility] Address [address] [address] Phone Care Team Providers Care Boats Renter Name Role Phone Pcp, Unknown Primary Care Provider Unavailabl e Allergies Active Allergy Reactions Criticality Noted Date Comments Levofloxacin 07/10/2023 Medications diphenhydrAMINE -acetaminophen (TYLENOL PM EXTRA STRENGTH) 25-500 mg Tab daily. Active adalimumab (HUMIRA,CF, PEN) 40 mg/0.4 mL pen kit citrate free See Instructions, INJECT 1 PEN UNDER THE SKIN EVERY 14 DAYS., # 2 Unknown, 2 Refills, [facility] Specialty 2 Active fluconazole (DIFLUCAN) 150 MG tablet as directed. 3 Active methotrexate 2.5 MG Oral tablet methotrexate sodium 2.5 mg tablet Take 6 tablets every week by oral route for 83 days. Active folic acid (FOLVITE) 1 MG tablet Take 1 tablet by mouth every morning. 3 Active hydrOXYchloroQU INE (PLAQUENIL) 200 mg tablet Take 1 tablet by mouth 2 (two) times a day. 3 Active Active Problems Problem Noted Date Diagnosed Date [facility] methotrexate user 01/01/202004/2023 Sjogren's syndrome with keratoconjunctivitis sic ca 01/01/2020 07/10/2023 Pain of both hip joints 01/01/2020 07/10/20 Primary Sjogren's syndrome 05/26/201907/10 Allergic rhinitis 07/28/2018 07/10/2023 Immunizations Immunization Administration Dates Next Due Influenza Quadrivalent Preservative Free IM 02/2020 Tdap 07/08/2020 Social History Tobacco Use Types Packs/Day Years Used Date Smoking Tobacco: Never Smokeless Tobacco: Never Tobacco Cessation:Counseling Given: Not Answered Education Answer Date Recorded Are you interested [...] on file Sexual Orientation Not on file Last Filed Vital Signs Vital Sign Reading Time Taken Comments Blood Pressure 140/100 07/10/2023 10:42 AM EDT ma sarai Pulse 84 07/10/2023 10:04 AM EDT Temperature 37.2 C (98.9 F) 07/10/2023 10:04 AM EDT Respiratory Rate 18 07/10/2023 10:04 AM EDT Oxygen Saturation 99% 07/10/2023 10:04 AM EDT Inhaled Oxygen Concentration - - Weight - - Height - - Body Mass Index - - Plan of Treatment Health Maintenance Due Date Last Done Comments LIPID PANEL 1965 DEPRESSION SCREENING 1977 HIV ONE-TIME SCREENING (18-6 5 YEARS) 1983 PNEUMOCOCCAL VACCINES (50+ years) (1 of 2 - PCV) 1984 ZOSTER VACCINES (1 of 2) 1984 PAP SMEAR 1986 MAMMOGRAM 2005 COLOGUARD 2010 COLONOSCOPY 2010 COLORECTAL CANCER SCREENING 2010 FIT TEST 2010 FOBT 2010 SIGMOIDOSCOPY 2010 VIRTUAL COLONOSCOPY 2010 INFLUENZA VACCINE (#1) 2025 07/08/2020 COVID-19 VACCINE (2024-2 6 season) 2025 06/20/2021, 03/03/2021, 02/05/2021 Adult Td,Tdap Booster 07/08/2030 07/08/2020 HEPATITIS C SCREENING Completed 06/27/2021 SMOKING STATUS SCREENING (On ce After 26 Yrs) Completed 07/10/2023 HEPATITIS A VACCINES Aged Out No long er eligible based on patient's age to complete this topic HIB VACCINES Aged Out No longer eligi ble based on patient's age to complete this topic MENINGOCOCCAL VACCINES (ACWY) Aged Out No longer eligible based on patient's age to complete this topic MENINGOCOCCAL VACCINES (B) Aged Out N o longer eligible based on patient's age to complete this topic Medical Devices Not on file Insurance [facility] PPO [facility] PPO [facility] PPO BLUE CROSS OUT OF STATE PPO Member Subscriber Plan / Payer (Ef fective 2019-Present) [place] [address] BLUE [place] OUT OF [facility] PPO Member Subscriber Plan / Payer (Ef fective 2019-Present) Name:Blanca Pascal Relation to Subscriber:Self Name:Blanca Pascal Payer ID:[id number] (NAIC) Type:PPO Address:
== END 2025-07-26 13:13 | disposition home or self-care (01) ==
LOC: HO.LAB 13:12
PROVIDERS: Visit Provider Student in an Organized Health Care Education/Training Program
DX: M32.9 Systemic lupus erythematosus, unspecified (principal)
CPT/HCPCS: 36415; 80053; 81001; 82570; 84156; 85025; 85652; 86160; 86225

== ENCOUNTER 2025-07-28 07:18 | Outpatient (AMB) | payer BC, SELFPAY ==
--- OUTSIDE RECORDS SUMMARY | 2025-07-28 07:20 | XMS_ITS | Encounter Summary ---
Author Organization [facility] Address [address] [facility] [address] [place] [address] Phone Care Team Providers Care Story Editor Name Role Phone Unknown, Unknown Primary Care Provider Gabriella Jeter, Teo A DO Primary Care Provider [phone] Bigda, Teo A DO Unavailable Bigda, Teo A DO Unavailable Pcp, Unknown Primary Care Provider Unavailabl e Encounter Details Date Type Department Care Team (Latest Contact Info) Description 05/01/2018 Transcribe Orders [facility] [address] [place] [address] Raymond Hebert PA [address] [facility] [address] [address] [email or web address] Right hip pain (Primary Dx) Social History Tobacco Use Types Packs/Day Years Used Date Smoking Tobacco: Never Assessed Comments Unknown Sex and Gender Information Value Date Recorded Sex Assigned at Not on file Legal Sex Female 9:41 PM EDT Gender Identity Not on file Sexual Orientation Not on file documented as of this encounter Plan of Treatment Not on file documented as of this encounter Results * Sedimentation rate (ESR) (05/01/2018 7:46 AM EDT) ESR 6 0 - 30 mm/h [facility] Blood 05/01/2018 7:46 AM EDT 05/01/2018 7:50 AM EDT Raymond CROW LAB BLOOD ORDERABLES Fi nal Result [place] [address] [address] * (ABNORMAL) CBC and differential (05/01/2018 7:46 AM EDT) WBC 8.22 3.40 - 11.20 K/uL [facility] RBC 4.97(H) 3.80 - 4.80 M/uL [facility] HGB 15.3(H) 12.0 - 15.0 g/dL [facility] HCT 45.9 36.0 - 46.0 % [facility] PLT 247 130 - 400 K/uL [facility] MCV 92.4 79.0 - 98.0 fL [facility] MCH 30.8 27.0 - 34.8 pg [facility] MCHC 33.3 31.5 - 36.0 g/dL [facility] RDW 13.8 10.8 - 14.6 % [facility] MPV 11.6 9.4 - 12.4 fl [facility] NRBC 0.00 /100 WBCs [facility] ABSOLUTE NRBC 0.00 K/uL [facility] DIFF METHOD Auto [facility] NEUTS 52.3 45.30 - 77.70 % [facility] LYMPHS 38.4 12.30 - 39.70 % [facility] MONOS 5.6 4.10 - 12.80 % [facility] EOS 2.9 0 - 7.2 % [facility] BASOS 0.4 0 - 2.80 % [facility] Granulocytes, immature (%) 0.4 0.0 - 0.9 % [facility] ABSOLUTE NEUTS 4.30 1.40 - 7.70 K/uL [facility] ABSOLUTE LYMPHS 3.16 0.60 - 3.20 K/uL [facility] ABSOLUTE MONOS 0.46 0.11 - 0.59 K/uL [facility] ABSOLUTE EOS 0.24 0.01 - 0.50 K/uL [facility] ABSOLUTE BASOS 0.03 0.00 - 0.08 K/uL [facility] Granulocytes, immature 0.03 0.00 - 0.05 K/uL [facility] Blood 05/01/2018 7:46 AM EDT 05/01/2018 7:50 AM EDT Raymond CROW LAB BLOOD ORDERABLES Fi nal Result [address] [address] * (ABNORMAL) C-Reactive Protein (05/01/2018 7:46 AM EDT) C REACTIVE PROTEIN 6.2(H) 0.0 - 4.0 mg/L [facility] Comment:New Reference Range and Measuring Units effective 03/19/18. Blood 05/01/2018 7:46 AM EDT 05/01/2018 7:50 AM EDT Raymond CROW LAB BLOOD ORDERABLES Fi nal Result Performing Organization Address [facility] Co de Phone Number [address] [address] * (ABNORMAL) Comprehensive metabolic panel (05/01/2018 7:46 AM EDT) SODIUM 144 133 - 146 mmol/L [facility] POTASSIUM 4.4 3.3 - 5.1 mmol/L [facility] CHLORIDE 105 96 - 108 mmol/L [facility] CO2 27 21 - 35 mmol/L [facility] BUN 14 6 - 19 mg/dL [facility] CREATININE 0.70 0.5 - 1.5 mg/dL [facility] GLUCOSE 112(H) 70 - 99 mg/dL [facility] ALBUMIN 3.9 3.9 - 4.8 g/dL [facility] TOTAL PROTEIN 6.2(L) 6.5 - 8.0 g/dL [facility] CALCIUM 9.0 8.4 - 10.3 mg/dL [facility] ALKALINE PHOSPHATASE 102 39 - 117 U/L [facility] TOTAL BILIRUBIN 0.3 0.0 - 1.2 mg/dL [facility] AST 28 0 - 37 U/L [facility] ALT 35 0 - 40 U/L [facility] GLOBULIN 2.3 1 - 4.8 g/dL [facility] EGFR 100 >59 mL/min/1.7 3m2 [facility] Comment:If patient is black, multiply result by 1.159. Estimated glomerular filtration rate calculated using the CKD-EPI equation. ANION GAP 16 10 - 20 mmol/L [facility] Blood 05/01/2018 7:46 AM EDT 05/01/2018 7:50 AM EDT Raymond CROW LAB BLOOD ORDERABLES Fi nal Result [facility] [address] [place] [address] documented in this encounter Visit Diagnoses Diagnosis Right hip pain- Primary Pain in joint, pelvic region and thigh documented in this encounter Additional Health Concerns Infection Onset Date Last Indicated Resolved Time C. diff 02/06/2024 02/06/2024 03/07/2024 1:21 AM EDT documented as of this encounter Care Teams Story Editor Relationship Specialty Start Date End Date Unknown, Unknown, PCP - General 10/21/17 01/06/20 Teo Jeter DO [email or web address] PCP - General Internal Medicine 01/07/20 07/09/23 Pcp, Unknown PCP - General 07/10/23 Teo Jeter DO [address] [place] [address] Insurance Assigned Provider 04/09/20 10/13/22 Teo Jeter DO [address] [place] [address] [email or web address] Insurance Assigned Provider 12/08/22 05/11/23 documented as of this encounter Additional Source Comments The information contained in this document represents components of the legal health record. It is not the complete legal health record.[facility]
--- OUTSIDE RECORDS SUMMARY | 2025-07-28 07:20 | XMS_ITS | Encounter Summary ---
Author Organization [facility] Address [address] [place] [address] Phone Care Team Providers Care Capacity Manager Name Role Phone Unknown, Unknown Primary Care Provider Teo Hoff DO Primary Care Provider [phone] Teo Jeter DO Unavailable Teo Jeter DO Unavailable Pcp, Unknown Primary Care Provider Unavailabl e Reason for Referral * MRI/CAT Scan - Closed Specialty Diagnoses / Procedures Referred By Contac t Referred To Contact Radiology Diagnoses Pain in left hip Procedures CT Hip (Left) Teo Jeter DO Phone: tel: fax: [email or web address] Referral ID Status Reason Start Date Expiration Date Visits Re quested Visits Authorized [id number] Closed 01/04/2020 02/02/2020 1 1 Encounter Details Date Type Department Care Team (Late st Contact Info) Description 01/01/2020 Transcribe Orders Virtual Department [address] [place] [address] Teo Jeter DO [address] [place] [address] [email or web address] Pain in left hip (Primary Dx) Social History Tobacco Use Types [...] documented as of this encounter Results * CT HIP WITHOUT CONTRAST (LEFT) (01/07/2020 8:03 AM EST) Anatomical Region Laterality Modality Hip Left Computed Tomogra phy 01/07/2020 8:04 AM EST Impressions 01/07/2020 8:08 AM EST No findings to account for the patient's symptoms. TOTAL CTDIvol: 12.4 mGy POS - [id number] Narrative 01/07/2020 8:08 AM EST COMPARISON: None. TECHNIQUE: CT left hip without IV contrast. Multiplanar reformatted images generated. Automated exposure control utilized. 3-D rendering was performed not requiring post processing on an independent workstation with concurrent supervision. CT LEFT HIP FINDINGS: Musculoskeletal: No acute fracture or malalignment. Hip joint space is preserved. Mild greater trochanteric spurring due to enthesopathy. No bone lesions. No significant joint effusion. Left hip muscles are within normal limits. Additional findings: No incidental findings of concern. Procedure Note Octavia Reid MD - 01/07/2020 COMPARISON: None. TECHNIQUE: CT left hip without IV contrast. Multiplanar reformattedimages generated. Automated exposure control utilized. 3-D rendering wasperformed not requiring post processing on an independent workstation withconcurrent supervision. CT LEFT HIP FINDINGS: Musculoskeletal: No acute fracture or malalignment. Hip joint space ispreserved. Mild greater trochanteric spurring due to enthesopathy. [place] lesions. No significant joint effusion. Left hip muscles are withinnormal limits. Additional findings: No incidental findings of concern. IMPRESSION: No findings to account for the patient's symptoms. TOTAL CTDIvol: 12.4 mGy POS - [id number] us Teo A Bigda DO IMG CT EXTREMITY Final Result documented in this encounter Visit Diagnoses Diagnosis Pain in left hip- Primary Pain in left hip documented in this encounter Additional Health Concerns Infection Onset Date Last Indicated Resolved Time C. diff 02/06/2024 02/06/2024 03/07/2024 1:21 AM EDT documented as of this encounter Care Teams Capacity Manager Relationship Specialty Start Date End Date Unknown, Unknown, PCP - General 10/21/17 01/06/20 Teo Jeter DO PCP - General Internal Medicine 01/07/20 07/09/23 Pcp, Unknown PCP - General 07/10/23 Teo Jeter DO [address] [place] [address] Insurance Assigned Provider 04/09/20 10/13/22 Teo Jeter DO [address] [place] [address] Insurance Assigned Provider 12/08/22 05/11/23 documented as of this encounter Additional Source Comments The information contained in this document represents components of the legal health record. It is not the complete legal health record.[facility]
--- OUTSIDE RECORDS SUMMARY | 2025-07-28 07:20 | XMS_ITS | Encounter Summary ---
Author Organization [facility] Address [address] [facility] [address] [place] [address] Phone Care Team Providers Care Greeter Name Role Phone Unknown, Unknown Primary Care Provider Gabriella Jeter, Teo A DO Primary Care Provider [phone] Bigda, Teo A DO Unavailable Bigda, Teo A DO Unavailable Pcp, Unknown Primary Care Provider Unavailabl e Encounter Details Date Type Department Care Team (Latest Contact Info) Description 10/21/2017 Transcribe Orders [facility] [address] [place] [address] Raymond Hebert, [address]_[place] [address] [email or web address] Pain of right hand (Primary Dx) Social History Tobacco Use Types [...] documented as of this encounter Results * (ABNORMAL) Extractable nuclear antigen (DIANA) antibodies (10/21/2017 9:50 AM EST) SS-A/RO IGG 0.2 <1.0 (Negative) U [facility] DPT OF LAB MED AND PAT+ SS-B/LA IGG 7.1(H) <1.0 (Negative) U [facility] DPT OF LAB MED AND PAT+ Comment: (NOTE) Interpretation: Positive (>=1.0) SM AB, IGG, S <0.2 <1.0 (Negative) U [facility] DPT OF LAB MED AND PAT+ [employer] CONSULTANT AB, IGG 0.4 <1.0 (Negative) U [facility] DPT OF LAB MED AND PAT+ SCL 70 AB, IGG <0.2 <1.0 (Negative) U [facility] DPT OF LAB MED AND PAT+ ILIANA 1 IGG <0.2 <1.0 (Negative) U [facility] DPT OF LAB MED AND PAT+ Blood 10/21/2017 9:50 AM EST 10/21/2017 10:00 AM EST Raymond CROW LAB BLOOD ORDERABLES Fi nal Result Performing Organization Address City/[facility]/ZIP Co de Phone Number [facility] DPT OF LAB MED AND PAT+ [address] [place] [address] * CCP IgG antibodies (10/21/2017 9:50 AM EST) CCP AB, S <15.6 <20.0 (Negative) U [facility] DPT OF LAB MED AND PAT+ Blood 10/21/2017 9:50 AM EST 10/21/2017 10:00 AM EST Raymond CROW LAB BLOOD ORDERABLES Fi nal Result Performing Organization Address City/[facility] Co de Phone Number [facility] DPT OF LAB MED AND PAT+ [address] [place] [address] * Double stranded DNA antibodies (10/21/2017 9:50 AM EST) DNA DOUBLE-STRANDED AB, IGG, S <12.3 <30.0 (Negative) IU/mL [facility] DPT OF LAB MED AND PAT+ Blood 10/21/2017 9:50 AM EST 10/21/2017 10:00 AM EST Raymond CROW LAB BLOOD ORDERABLES Fi nal Result Performing Organization Address City/[facility]/ZIP Co de Phone Number [facility] DPT OF LAB MED AND PAT+ [address] [place] [address] * Sedimentation rate (ESR) (10/21/2017 9:50 AM EST) ESR 3 0 - 30 mm/h [facility] Blood 10/21/2017 9:50 AM EST 10/21/2017 9:57 AM EST us Raymond CROW LAB BLOOD ORDERABLES Fi nal Result Performing Organization Address City/State/[facility] Co de Phone Number [address] [address] * (ABNORMAL) CBC and differential (10/21/2017 9:50 AM EST) WBC 8.47 3.40 - 11.20 K/uL [facility] RBC 5.15(H) 3.80 - 4.80 M/uL [facility] HGB 15.7(H) 12.0 - 15.0 g/dL [facility] HCT 45.7 36.0 - 46.0 % [facility] PLT 248 130 - 400 K/uL [facility] MCV 88.7 79.0 - 98.0 fL [facility] MCH 30.5 27.0 - 34.8 pg [facility] MCHC 34.4 31.5 - 36.0 g/dL [facility] RDW 13.5 10.8 - 14.6 % [facility] MPV 11.3 9.4 - 12.4 [facility] NRBC 0.00 /100 WBCs [facility] ABSOLUTE NRBC 0.00 K/uL [facility] DIFF METHOD Auto [facility] NEUTS 45.6 45.30 - 77.70 % [facility] LYMPHS 44.9(H) 12.30 - 39.70 % [facility] MONOS 5.7 4.10 - 12.80 % [facility] EOS 3.2 0 - 7.2 % [facility] BASOS 0.4 0 - 2.80 % [facility] Granulocytes, immature (%) 0.2 0.0 - 0.9 % [facility] ABSOLUTE NEUTS 3.87 1.40 - 7.70 K/uL [facility] ABSOLUTE LYMPHS 3.80(H) 0.60 - 3.20 K/uL [facility] ABSOLUTE MONOS 0.48 0.11 - 0.59 K/uL [facility] ABSOLUTE EOS 0.27 0.01 - 0.50 K/uL [facility] ABSOLUTE BASOS 0.03 0.00 - 0.08 K/uL [facility] Granulocytes, immature 0.02 0.00 - 0.05 K/uL [facility] Blood 10/21/2017 9:50 AM EST 10/21/2017 9:57 AM EST Raymond CROW LAB BLOOD ORDERABLES Fi nal Result Performing Organization Address City/[facility]/ZIP Co de Phone Number [address] [address] * (ABNORMAL) C-Reactive Protein (10/21/2017 9:50 AM EST) C REACTIVE PROTEIN 0.6(H) 0 - 0.5 mg/L [facility] Blood 10/21/2017 9:50 AM EST 10/21/2017 9:57 AM EST Raymond CROW LAB BLOOD ORDERABLES Fi nal Result Performing Organization Address City/[facility]/ZIP Co de Phone Number [address] [address] * Comprehensive metabolic panel (10/21/2017 9:50 AM EST) SODIUM 140 133 - 146 mmol/L [facility] POTASSIUM 4.6 3.3 - 5.1 mmol/L [facility] CHLORIDE 100 96 - 108 mmol/L [facility] CO2 28 21 - 35 mmol/L [facility] BUN 16 6 - 19 mg/dL [facility] CREATININE 0.90 0.5 - 1.5 mg/dL [facility] GLUCOSE 86 70 - 99 mg/dL [facility] ALBUMIN 4.1 3.9 - 4.8 g/dL [facility] TOTAL PROTEIN 6.8 6.5 - 8.0 g/dL [facility] CALCIUM 9.3 8.4 - 10.3 mg/dL [facility] ALKALINE PHOSPHATASE 79 39 - 117 U/L [facility] TOTAL BILIRUBIN 0.3 0 - 1.2 mg/dL [facility] AST 21 0 - 37 U/L [facility] ALT 19 0 - 40 U/L [facility] GLOBULIN 2.7 1 - 4.8 g/dL [facility] EGFR >60 60 - 1000 mL/min/1.7 3m2 [facility] Comment:Abnormal if <60. If patient is -[place], multiply the result by 1.21. ANION GAP 17 10 - 20 mmol/L [facility] Blood 10/21/2017 9:50 AM EST 10/21/2017 9:57 AM EST Raymond CROW LAB BLOOD ORDERABLES Fi nal Result Performing Organization Address City/State/[facility] Co de Phone Number [facility] [address] [place] [address] documented in this encounter Visit Diagnoses Diagnosis Pain of right hand- Primary documented in this encounter Additional Health Concerns Infection Onset Date Last Indicated Resolved Time C. diff 02/06/2024 02/06/2024 03/07/2024 1:21 AM EDT documented as of this encounter Care Teams Greeter Relationship Specialty Start Date End Date Unknown, Unknown, PCP - General 10/21/17 01/06/20 Teo Jeter DO [email or web address] PCP - General Internal Medicine 01/07/20 07/09/23 Pcp, Unknown PCP - General 07/10/23 Teo Jeter DO [address] [place] [address] Insurance Assigned Provider 04/09/20 10/13/22 Teo Jeter DO [address] [place] [address] [email or web address] Insurance Assigned Provider 12/08/22 05/11/23 documented as of this encounter Additional Source Comments The information contained in this document represents components of the legal health record. It is not the complete legal health record.[facility]
--- OUTSIDE RECORDS SUMMARY | 2025-07-28 07:20 | XMS_ITS | Encounter Summary ---
Author Organization [facility] Address [address] [place] [address] Phone Care Team Providers Care Preschool Assistant Name Role Phone Unknown, Unknown Primary Care Provider Gabriella Jeter, Teo A DO Primary Care Provider [phone] Bigda, Teo A DO Unavailable Bigda, Teo A DO Unavailable Pcp, Unknown Primary Care Provider Unavailabl e Encounter Details Date Type Department Care Team (Latest Contact Info) Description 04/01/2019 Transcribe Orders [facility] [address] [place] [address] Daron Bone MD [address] [place] [address] Keratoconjunctivitis sicca (Primary Dx); Chronic fatigue syndrome; Encounter for long-term (current) use of other medications; Primary osteoarthritis of both hips; Chronic idiopathic anal pain Social History Tobacco Use Types Packs/Day Years Used Date Smoking Tobacco: Never Assessed Comments Unknown Sex and Gender Information Value Date Recorded Sex Assigned at Not on file Legal Sex Female 9:41 PM EDT Gender Identity Not on file Sexual Orientation Not on file documented as of this encounter Plan of Treatment Not on file documented as of this encounter Results * Immunofixation only (04/01/2019 11:31 AM EDT) IMMUNOFIXATION No monoclonal protein detected. [facility] [place] Blood 04/01/2019 11:3 1 AM EDT 04/01/2019 12:07 PM EDT us Daron Bone MD LAB BLOOD ORDERABLES F inal Result Performing Organization Address City/[facility]/ZIP Co de Phone Number [facility]/PATH [address] [place] [address] * Serum protein electrophoresis W/O Immunoglobulins and Immunofixation (04/01/2019 11:31 AM EDT) Pathologist [facility] TOTAL PROTEIN 6.5 6.3 - 7.9 g/dL [facility]/[address] ALBUMIN 3.6 3.4 - 4.7 g/dL [facility]/[address] ALPHA-1 GLOBULIN 0.3 0.1 - 0.3 g/dL [facility]/[address] ALPHA-2 GLOBULIN 0.9 0.6 - 1.0 g/dL [facility]/[address] BETA-GLOBULIN 1.0 0.7 - 1.2 g/dL [facility]/[address] GAMMA-GLOBULIN 0.7 0.6 - 1.6 g/dL [facility]/[address] [place] A/G RATIO 1.22 [facility]/[address] Perkins SPIKE Test component not applicable or not reported. g/dL [facility] MED/[facility] [place] M SPIKE Test component not applicable or not reported. g/dL [facility]/[address] IMPRESSION SEE NOTE [facility] [place] Comment: (NOTE) No apparent monoclonal protein on serum electrophoresis. Blood 04/01/2019 11:3 1 AM EDT 04/01/2019 12:07 PM EDT Daron Bone MD LAB BLOOD ORDERABLES F inal Result Performing Organization Address City/[facility]/ZIP Co de Phone Number [facility] MED/[facility] [place] [address] [place] [address] * Double stranded DNA antibodies (04/01/2019 11:31 AM EDT) ANTI DSDNA ANTIBODY Negative at 1:10 [facility] Comment: Alfie Gonzalez M.D., Director Clinical Immunology Laboratory [id number] Normal: Negative at 1:10 To interpret a negative test for anti-[place] or double stranded DNA antibodies in a patient suspected of having systemic lupus erythematosus, the following limitation should be noted. Anti-double stranded DNA antibodies are usually detected in SLE patients with active disease, especially in those with active renal disease. Anti-DNA antibodies are usually not detected in SLE patients with spontaneous or drug-induced remissions. Blood 04/01/2019 11:3 1 AM EDT 04/01/2019 12:07 PM EDT Daron Bone MD LAB BLOOD ORDERABLES F inal Result Performing Organization Address City/[facility] Co de Phone Number [address] [address] * Complement C4 (04/01/2019 11:31 AM EDT) C4 26 12 - 39 mg/dL [facility] Blood 04/01/2019 11:3 1 AM EDT 04/01/2019 12:07 PM EDT Daron Bone MD LAB BLOOD ORDERABLES F inal Result Performing Organization Address [facility] Co de Phone Number [address] [address] * (ABNORMAL) Complement C3 (04/01/2019 11:31 AM EDT) C3 165(H) 81 - 157 mg/dl [facility] Blood 04/01/2019 11:3 1 AM EDT 04/01/2019 12:07 PM EDT Result [facility] Daron Bone MD LAB BLOOD ORDERABLES F inal Result Performing Organization Address [facility] Co de Phone Number [address] [address] * (ABNORMAL) URINALYSIS WITH SEDIMENT (04/01/2019 11:31 AM EDT) WBC 0-4(A) NONE SEEN /hpf [facility] RBC 3-5(A) NONE SEEN /hpf [facility] URINE EPITHELIAL 11-20(A) NONE [facility]EN [facility] NONE SEEN NONE SEEN /hpf [facility] BACTERIA Trace(A) NONE [facility]EN [facility] COL[facility] Yellow Yellow [facility] CLARITY Clear [facility] GLUCOSE Negative Negative [facility] BILI Negative Negative [facility] KETONES Negative Negative [facility] SPECIFIC GRAVITY <1.005 1.005 - 1.030 [facility] BLOOD Trace(A) Negative [facility] PH 5.5 5.0 - 8.0 [facility] Protein-UA Negative Negative [facility] NITRITE Negative Negative [facility] Leukocyte esterase, ur Negative Negative [facility] Urine (Urine) 04/01/2019 11: 31 AM EDT 04/01/2019 12:08 PM EDT Daron Bone MD URINE ORDERABLES Final Result Performing Organization Address [facility]/ZIP Co de Phone Number [address] [address] * Sedimentation rate (ESR) (04/01/2019 11:31 AM EDT) ESR 8 0 - 30 mm/h [facility] Blood 04/01/2019 11:3 1 AM EDT 04/01/2019 12:07 PM EDT Daron Bone MD LAB BLOOD ORDERABLES F inal Result Performing Organization Address [facility] Co de Phone Number [address] [address] * (ABNORMAL) CBC and differential (04/01/2019 11:31 AM EDT) WBC 7.53 3.40 - 11.20 K/uL [facility] RBC 4.99(H) 3.80 - 4.80 M/uL [facility] HGB 15.7(H) 12.0 - 15.0 g/dL [facility] HCT 47.9(H) 36.0 - 46.0 % [facility] PLT 249 130 - 400 K/uL [facility] MCV 96.0 79.0 - 98.0 fL [facility] MCH 31.5 27.0 - 34.8 pg [facility] MCHC 32.8 31.5 - 36.0 g/dL [facility] RDW 14.3 10.8 - 14.6 % [facility] MPV 11.5 9.4 - 12.4 fl [facility] NRBC 0.00 0.00 /100 WBCs [facility] ABSOLUTE NRBC 0.00 0.00 K/uL [facility] DIFF METHOD Auto [facility] NEUTS 49.4 45.30 - 77.70 % [facility] LYMPHS 41.4(H) 12.30 - 39.70 % [facility] MONOS 6.1 4.10 - 12.80 % [facility] EOS 2.7 0 - 7.2 % [facility] BASOS 0.3 0 - 2.80 % [facility] Granulocytes, immature (%) 0.1 0.0 - 0.9 % [facility] ABSOLUTE NEUTS 3.72 1.40 - 7.70 K/uL [facility] ABSOLUTE LYMPHS 3.12 0.60 - 3.20 K/uL [facility] ABSOLUTE MONOS 0.46 0.11 - 0.59 K/uL [facility] ABSOLUTE EOS 0.20 0.01 - 0.50 K/uL [facility] ABSOLUTE BASOS 0.02 0.00 - 0.08 K/uL [facility] Granulocytes, immature 0.01 0.00 - 0.05 K/uL [facility] Blood 04/01/2019 11:3 1 AM EDT 04/01/2019 12:07 PM EDT us Daron Bone MD LAB BLOOD ORDERABLES F inal Result [facility] [address] [place] [address] * (ABNORMAL) C-Reactive Protein (04/01/2019 11:31 AM EDT) C REACTIVE PROTEIN 11.4(H) 0.0 - 4.0 mg/L [facility] Blood 04/01/2019 11:3 1 AM EDT 04/01/2019 12:07 PM EDT us Daron Bone MD LAB BLOOD ORDERABLES F inal Result Performing Organization Address City/[facility]/ZIP Co de Phone Number [address] [address] * (ABNORMAL) Comprehensive metabolic panel (04/01/2019 11:31 AM EDT) SODIUM 143 133 - 146 mmol/L [facility] POTASSIUM 3.8 3.3 - 5.1 mmol/L [facility] CHLORIDE 100 96 - 108 mmol/L [facility] CO2 27 21 - 35 mmol/L [facility] BUN 11 6 - 19 mg/dL [facility] CREATININE 0.70 0.5 - 1.5 mg/dL [facility] GLUCOSE 41(LL) 70 - 99 mg/dL [facility] Comment: Critical Value. Results called to and read back by: Dr Bone ALBUMIN 4.2 3.9 - 4.8 g/dL [facility] TOTAL PROTEIN 7.0 6.5 - 8.0 g/dL [facility] CALCIUM 9.4 8.4 - 10.3 mg/dL [facility] ALKALINE PHOSPHATASE 102 39 - 117 U/L [facility] TOTAL BILIRUBIN 0.5 0.0 - 1.2 mg/dL [facility] AST 35 0 - 37 U/L [facility] ALT 34 0 - 40 U/L [facility] GLOBULIN 2.8 1 - 4.8 g/dL [facility] EGFR 99 >59 mL/min/1.7 3m2 [facility] Comment:If patient is black, multiply result by 1.159. Estimated glomerular filtration rate calculated using the CKD-EPI equation. ANION GAP 20 10 - 20 mmol/L [facility] Blood 04/01/2019 11:3 1 AM EDT 04/01/2019 12:07 PM EDT us Daron Bone MD LAB BLOOD ORDERABLES F inal Result [address] [address] documented in this encounter Visit Diagnoses Diagnosis Keratoconjunctivitis sicca- Primary Sicca syndrome Chronic fatigue syndrome Encounter for long-term (current) use of other medications Primary osteoarthritis of both hips Chronic idiopathic anal pain Stenosis of rectum and anus documented in this encounter Additional Health Concerns Infection Onset Date Last Indicated Resolved Time C. diff 02/06/2024 02/06/2024 03/07/2024 1:21 AM EDT documented as of this encounter Care Teams Preschool Assistant Relationship Specialty Start Date End Date Unknown, Unknown, MD PCP - General 10/21/17 01/06/20 Teo Jeter DO PCP - General Internal Medicine 01/07/20 07/09/23 Pcp, Unknown PCP - General 07/10/23 Teo Jeter DO [address] [place] [address] Insurance Assigned Provider 04/09/20 10/13/22 Teo Jeter DO [address] [place] [address] Insurance Assigned Provider 12/08/22 05/11/23 documented as of this encounter Additional Source Comments The information contained in this document represents components of the legal health record. It is not the complete legal health record.[facility]
--- OUTSIDE RECORDS SUMMARY | 2025-07-28 07:20 | XMS_ITS | Encounter Summary ---
Author Organization [facility] Address [address] [place] [address] Phone Care Team Providers Care Brush Polisher Name Role Phone Unknown, Unknown Primary Care Provider Gabriella Jeter, Teo A DO Primary Care Provider [phone] Bigda, Teo A DO Unavailable Bigda, Teo A DO Unavailable Pcp, Unknown Primary Care Provider Unavailabl e Encounter Details Date Type Department Care Team (Late st Contact Info) Description 10/02/2018 Transcribe Orders [facility] [address] [place] [address] System, Provider [place] In, [place] [address] Chronic fatigue syndrome (Primary Dx); Keratoconjunctivitis sicca Social History Tobacco Use Types Packs/Day Years Used Date Smoking Tobacco: Never Assessed Comments Unknown Sex and Gender Information Value Date Recorded Sex Assigned at Not on file Legal Sex Female 9:41 PM EDT Gender Identity Not on file Sexual Orientation Not on file documented as of this encounter Plan of Treatment Not on file documented as of this encounter Results * (ABNORMAL) Urine protein/creatinine with ratio (10/02/2018 7:42 AM EST) URINE TOTAL PROTEIN 71.1 mg/dL [facility] URINE CREATININE 347 mg/dL [facility] URINE TP CRE RATIO 0.20(H) 0 - 0.19 [facility] Urine (Urine) 10/02/2018 7:4 2 AM EST 10/02/2018 7:53 AM EST us Provider Not In System PhD URINE ORDERABLES Emmy christensen Result [facility] [address] [place] [address] * CCP IgG antibodies (10/02/2018 7:42 AM EST) CCP AB, S <15.6 <20.0 (Negative) U [facility] MED/PATH [address] Blood 10/02/2018 7:42 AM EST 10/02/2018 7:53 AM EST us Provider Not In System PhD LAB BLOOD ORDERABLES Final Result [facility]/PATH [address] [place] [address] * Double stranded DNA antibodies (10/02/2018 7:42 AM EST) DNA DOUBLE-STRANDED AB, IGG, S <12.3 <30.0 (Negative) IU/ML [facility]/[address] Blood 10/02/2018 7:42 AM EST 10/02/2018 7:53 AM EST us Provider Not In System PhD LAB BLOOD ORDERABLES Final Result [facility]/PATH [address] [place] [address] * Complement C4 (10/02/2018 7:42 AM EST) COMPLEMENT C4 24 14 - 40 mg/dL [facility] DPT OF LAB MED AND PAT+ Blood 10/02/2018 7:42 AM EST 10/02/2018 7:53 AM EST us Provider Not In System PhD LAB BLOOD ORDERABLES Final Result [facility] DPT OF LAB MED AND PAT+ [address] [place] [address] * Complement C3 (10/02/2018 7:42 AM EST) COMPLEMENT C3 141 75 - 175 mg/dL [facility] DPT OF LAB MED AND PAT+ Blood 10/02/2018 7:42 AM EST 10/02/2018 7:53 AM EST us Provider Not In System PhD LAB BLOOD ORDERABLES Final Result [facility] DPT OF LAB MED AND PAT+ [address] [place] [address] * (ABNORMAL) CBC and differential (10/02/2018 7:42 AM EST) WBC 9.62 3.40 - 11.20 K/uL [facility] RBC 5.23(H) 3.80 - 4.80 M/uL [facility] HGB 16.1(H) 12.0 - 15.0 g/dL [facility] HCT 48.2(H) 36.0 - 46.0 % [facility] PLT 271 130 - 400 K/uL [facility] MCV 92.2 79.0 - 98.0 fL [facility] MCH 30.8 27.0 - 34.8 pg [facility] MCHC 33.4 31.5 - 36.0 g/dL [facility] RDW 14.0 10.8 - 14.6 % [facility] MPV 11.5 9.4 - 12.4 fl [facility] NRBC 0.00 0.00 /100 WBCs [facility] ABSOLUTE NRBC 0.00 0.00 K/uL [facility] DIFF METHOD Auto [facility] NEUTS 59.5 45.30 - 77.70 % [facility] LYMPHS 31.9 12.30 - 39.70 % [facility] MONOS 5.1 4.10 - 12.80 % [facility] EOS 2.8 0 - 7.2 % [facility] BASOS 0.3 0 - 2.80 % [facility] Granulocytes, immature (%) 0.4 0.0 - 0.9 % [facility] ABSOLUTE NEUTS 5.72 1.40 - 7.70 K/uL [facility] ABSOLUTE LYMPHS 3.07 0.60 - 3.20 K/uL [facility] ABSOLUTE MONOS 0.49 0.11 - 0.59 K/uL [facility] ABSOLUTE EOS 0.27 0.01 - 0.50 K/uL [facility] ABSOLUTE BASOS 0.03 0.00 - 0.08 K/uL [facility] Granulocytes, immature 0.04 0.00 - 0.05 K/uL [facility] Blood 10/02/2018 7:42 AM EST 10/02/2018 7:53 AM EST us Provider Not In System PhD LAB BLOOD ORDERABLES Final Result Performing Organization Address [facility]/ZIP Co de Phone Number [address] [address] * Rheumatoid factor (10/02/2018 7:42 AM EST) RHEUMATOID FACTOR <10.0 0.0 - 14.0 IU/ml [facility] Blood 10/02/2018 7:42 AM EST 10/02/2018 7:53 AM EST us Provider Not In System PhD LAB BLOOD ORDERABLES Final Result Performing Organization Address [facility] Co de Phone Number [address] [address] * (ABNORMAL) Comprehensive metabolic panel (10/02/2018 7:42 AM EST) SODIUM 140 133 - 146 mmol/L [facility] POTASSIUM 4.5 3.3 - 5.1 mmol/L [facility] CHLORIDE 99 96 - 108 mmol/L [facility] CO2 27 21 - 35 mmol/L [facility] BUN 12 6 - 19 mg/dL [facility] CREATININE 0.80 0.5 - 1.5 mg/dL [facility] GLUCOSE 128(H) 70 - 99 mg/dL [facility] ALBUMIN 4.3 3.9 - 4.8 g/dL [facility] TOTAL PROTEIN 7.0 6.5 - 8.0 g/dL [facility] CALCIUM 9.8 8.4 - 10.3 mg/dL [facility] ALKALINE PHOSPHATASE 99 39 - 117 U/L [facility] TOTAL BILIRUBIN 0.7 0.0 - 1.2 mg/dL [facility] AST 27 0 - 37 U/L [facility] ALT 23 0 - 40 U/L [facility] GLOBULIN 2.7 1 - 4.8 g/dL [facility] EGFR 84 >59 mL/min/1.7 3m2 [facility] Comment:If patient is black, multiply result by 1.159. Estimated glomerular filtration rate calculated using the CKD-EPI equation. ANION GAP 19 10 - 20 mmol/L [facility] Blood 10/02/2018 7:42 AM EST 10/02/2018 7:53 AM EST us Provider Not In System PhD LAB BLOOD ORDERABLES Final Result Performing Organization Address City/State/[facility] Co de Phone Number [facility] [address] [place] [address] documented in this encounter Visit Diagnoses Diagnosis Chronic fatigue syndrome- Primary Keratoconjunctivitis sicca Sicca syndrome documented in this encounter Additional Health Concerns Infection Onset Date Last Indicated Resolved Time C. diff 02/06/2024 02/06/2024 03/07/2024 1:21 AM EDT documented as of this encounter Care Teams Brush Polisher Relationship Specialty Start Date End Date Unknown, Unknown, MD PCP - General 10/21/17 01/06/20 Teo Jeter DO [email or web address] PCP - General Internal Medicine 01/07/20 07/09/23 Pcp, Unknown PCP - General 07/10/23 Teo Jeter DO [address] [place] [address] Insurance Assigned Provider 04/09/20 10/13/22 Teo Jeter DO [address] [place] [address] [email or web address] Insurance Assigned Provider 12/08/22 05/11/23 documented as of this encounter Additional Source Comments The information contained in this document represents components of the legal health record. It is not the complete legal health record.[facility]
--- OUTSIDE RECORDS SUMMARY | 2025-07-28 07:21 | XMS_ITS | Encounter Summary ---
Author Organization [facility] Address [address] [place] [address] Phone Care Team Providers Care It Support Technician Name Role Phone Bigkacey, Teo A DO Primary Care Provider [phone] Bigda, Teo A DO Unavailable Bigda, Teo A DO Unavailable Pcp, Unknown Primary Care Provider Unavailabl e Encounter Details Date Type Department Care Team (Latest Contact Info) Description 01/29/2020 Transcribe Orders [facility] [address] [place] [address] Daron Bone MD [address] [place] [address] Primary osteoarthritis of both hips (Primary Dx); Keratoconjunctivitis sicca Social History Tobacco [...] as of this encounter Results * (ABNORMAL) C-Reactive Protein (01/29/2020 10:43 AM EDT) C REACTIVE PROTEIN 6.4(H) 0.0 - 4.0 mg/L [facility] Blood 01/29/2020 10:4 3 AM EDT 01/29/2020 11:06 AM EDT us Daron Bone MD LAB BLOOD ORDERABLES F inal Result [facility] [address] [place] [address] * Comprehensive metabolic panel (01/29/2020 10:43 AM EDT) SODIUM 140 133 - 146 mmol/L [facility] POTASSIUM 4.5 3.3 - 5.1 mmol/L [facility] CHLORIDE 103 96 - 108 mmol/L [facility] CO2 28 21 - 35 mmol/L [facility] BUN 10 6 - 19 mg/dL [facility] CREATININE 0.70 0.5 - 1.5 mg/dL [facility] GLUCOSE 84 70 - 99 mg/dL [facility] ALBUMIN 4.1 3.9 - 4.8 g/dL [facility] TOTAL PROTEIN 6.7 6.5 - 8.0 g/dL [facility] CALCIUM 8.8 8.4 - 10.3 mg/dL [facility] ALKALINE PHOSPHATASE 112 39 - 117 U/L [facility] TOTAL BILIRUBIN 0.3 0.0 - 1.2 mg/dL [facility] AST 23 0 - 37 U/L [facility] ALT 17 0 - 40 U/L [facility] GLOBULIN 2.6 1 - 4.8 g/dL [facility] EGFR 98 >59 mL/min/1.7 3m2 [facility] Comment:If patient is black, multiply result by 1.159. Estimated glomerular filtration rate calculated using the CKD-EPI equation. ANION GAP 14 10 - 20 mmol/L [facility] Blood 01/29/2020 10:4 3 AM EDT 01/29/2020 11:06 AM EDT us Daron Bone MD LAB BLOOD ORDERABLES F inal Result [facility] [address] [place] [address] * (ABNORMAL) CBC and differential (01/29/2020 10:43 AM EDT) WBC 9.06 4.00 - 11.00 K/uL [facility] Comment:Note Reference Range updates to all CBC and Differential results. RBC 4.67 3.72 - 5.30 M/uL [facility] HGB 15.3 10.6 - 15.5 g/dL [facility] Comment:Note updated Referen ce Ranges for all CBC and Differential results. HCT 44.2 32.0 - 45.0 % [facility] PLT 232 140 - 430 K/uL [facility] MCV 94.6 78.0 - 97.0 fL [facility] MCH 32.8 25.0 - 33.0 pg [facility] MCHC 34.6 32.0 - 36.0 g/dL [facility] RDW 14.6 11.0 - 16.0 % [facility] MPV 10.9 8.4 - 12.8 fl [facility] NRBC 0.00 0 /100 WBCs [facility] ABSOLUTE NRBC 0.00 0 K/uL [facility] DIFF METHOD Auto [facility] NEUTS 50.3 43.0 - 75.0 % [facility] LYMPHS 40.8 18.2 - 47.4 % [facility] MONOS 5.5 4.00 - 11.00 % [facility] EOS 2.8 0.0 - 8.0 % [facility] BASOS 0.3 0.0 - 2.0 % [facility] Granulocytes, immature (%) 0.3 0.0 - 0.9 % [facility] ABSOLUTE NEUTS 4.55 1.80 - 7.70 K/uL [facility] ABSOLUTE LYMPHS 3.70(H) 1.00 - 3.10 K/uL [facility] ABSOLUTE MONOS 0.50 0.20 - 0.80 K/uL [facility] ABSOLUTE EOS 0.25 0.00 - 0.80 K/uL [facility] ABSOLUTE BASOS 0.03 0.00 - 0.09 K/uL [facility] Granulocytes, immature 0.03 0.00 - 0.05 K/uL [facility] Blood 01/29/2020 10:4 3 AM EDT 01/29/2020 11:06 AM EDT us Daron Bone MD LAB BLOOD ORDERABLES F inal Result [facility] [address] [place] [address] * Sedimentation rate (ESR) (01/29/2020 10:43 AM EDT) ESR 7 0 - 30 mm/h [facility] Blood 01/29/2020 10:4 3 AM EDT 01/29/2020 11:06 AM EDT Daron Bone MD LAB BLOOD ORDERABLES F inal Result [facility] [address] [place] [address] documented in this encounter Visit Diagnoses Diagnosis Primary osteoarthritis of both hips- Primary Keratoconjunctivitis sicca Sicca syndrome documented in this encounter Additional Health Concerns Infection Onset Date Last Indicated Resolved Time C. diff 02/06/2024 02/06/2024 03/07/2024 1:21 AM EDT documented as of this encounter Care Teams It Support Technician Relationship Specialty Start Date End Date Teo Jeter DO PCP - General Internal Medicine 01/07/20 07/09/23 Pcp, Unknown PCP - General 07/10/23 Teo Jeter DO [address] [place] [address] [email or web address] Insurance Assigned Provider 04/09/20 10/13/22 Teo Jeter DO [address] [place] [address] Insurance Assigned Provider 12/08/22 05/11/23 documented as of this encounter Additional Source Comments The information contained in this document represents components of the legal health record. It is not the complete legal health record.[facility]
--- OUTSIDE RECORDS SUMMARY | 2025-07-28 07:21 | XMS_ITS | Encounter Summary ---
Author Organization [facility] Address [address] [facility] [address] [place] [address] Phone Care Team Providers Care Video Game Engineer Name Role Phone Pcp, Unknown Primary Care Provider Unavailabl e Encounter Details Date Type Department Care Team (Latest Contact Info) Description 01/31/2024 Transcribe Orders Virtual Department [address] [place] [address] Cony Hernandez CNP [address] [place] [address] Elevated LFTs (Primary Dx) Social History Tobacco Use Types [...] clinician's provided indication for this examination in Epic: Outside Radiology Order; elevated lft's TECHNIQUE: US [...] clinician's provided indication for this examination in Epic:Outside Radiology Order; elevated lft's TECHNIQUE: US Abdominal limited right upper quadrant. COMPARISON: None FINDINGS: Liver: Diffusely hyperechogenic parenchyma. Simple appearing 1.1 cm cyst.No suspicious focal lesion. Main Portal Vein: Patent with normal direction of flow. Gallbladder: Cholecystectomy Biliary: No intrahepatic or extrahepatic biliary ductal dilatation. The common bile duct measures 4 mm. IMPRESSION: Hyperechogenic liver parenchyma, likely representing steatosis. No bile duct dilation. Cony Nieves David [facility] IM US ABDOMEN Final Resu lt documented in this encounter Visit Diagnoses Diagnosis Elevated LFTs- Primary Other abnormal blood chemistry Elevated LFTs Other abnormal blood chemistry documented in this encounter Additional Health Concerns Infection Onset Date Last Indicated Resolved Time C. diff 02/06/2024 02/06/2024 03/07/2024 1:21 AM EDT documented as of this encounter Care Teams Video Game Engineer Relationship Specialty Start Date End Date Pcp, Unknown PCP - General 07/10/23 documented as of this encounter Additional Source Comments The information contained in this document represents components of the legal health record. It is not the complete legal health record.[facility]
--- OUTSIDE RECORDS SUMMARY | 2025-07-28 07:21 | XMS_ITS | Data Portability ---
Author Organization [facility] Telehealth Patient Home Address [address] [place] [address] Assessment Encounter Date Assessment Date Assessment LastModified by Organization Details LastModified Time 09/05/2022 09/05/2022 [id number] [place] [id number] (MENTAL HEALTH ORDERLY) MDM MODERATE MUST MEET 2 OUT OF [...] (antinuclea r antibodies) screen, serum 2019 020 [facility], [address] [place] [address], [place], [address], 0 09:09:41 Referral gastroenter ologist referral 2021 022 [facility] [place], [address] [place] [address], [address], 2 08:46:27 Procedures None recorded. Surgeries None recorded. Imaging CT, hip, w/o contrast 2019 020 GARY Not available 0 08:17:39 Medication Orders None recorded. Patient TargetsNo targets recorded. Patient Instructions Encounter Date Encounter Id Patient Instructions Last Modified By Organization Details Last Modified Time 09/05/2022 [id number] lupus: care instructions Not available 09/05/2022 16:27:03 Reason for Referral Technical Rep Referral for Screening for malignant neoplasm of colon Referring Physician: Teo Jeter, Internal Medicine, Encounter Date: 09/05/2022 Results Created Date Observation Date Name Description Value Unit Range Abnormal Flag Note LastModifiedBy Organization Detail LastModifiedTime 12/11/19 20 12/11/2019 LDXR, hip, bilat eral, 2 view No observ ation record ed. [facility] ([facility]) [address], [place], [address], 01/01/2020 16:05:03 12/14/19 20 12/11/2019 XR, hip, unila teral , 2 or 3 view No observ ation record ed. [facility] ([facility]) [address], [place], [address], 01/01/2020 16:05:03 01/07/20 20 01/07/2020 CT, hip, w/o contr ast No observ ation record ed. [facility] [address] [facility], [place], [address], 01/08/2020 09:19:19 06/15/20 21 06/14/2021 MAMMO , scree alberto, digit al, bilat eral No observ ation record ed. [facility] [address] [facility], [place], [address], 06/15/2021 13:47:51 11/16/19 23 11/16/2022 XR, sinus es, paran jazlyn, 3 or more view No observ ation record ed. [facility] (Medical Records) [address] [place], [address], 11/20/2022 15:56:10 Result Notes None recorded. 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 Medical Equipment None Reported. Allergies Allergen ID Allergen Name Allergen Category Reaction Reaction Severity Criticality Documentation Date Start Date Code Code System Note Provider Name and Address Organization Details Recorded Time 2322 Levaquin medicatio n Not available Not available Not available 07/28/2018 73758 2 [facility] 8 13:54:22 Medications Name Sig [...] in Arterial blood by Pulse oximetry Systolic And Diastolic Provider Name and Address Organization Details Last Updated DateTime 0 169.55 cm 33.6 kg/m2 86838.8 2 g 83 /min 98 % 98 % 120/80 mm[Hg] Jael Spears [facility] 0 15:46:02 Date Recorded Body height Heart rate Oxygen saturation Oxygen saturation in Arterial blood by Pulse oximetry Systolic And Diastolic Provider Name and Address Organization Details Last Updated DateTime 0 169.55 cm 74 /min 98 % 98 % 140/80 mm[Hg] Jael Separs [facility] 0 11:44:50 Date Recorded Body height Body mass index (BMI) Body weight Heart rate Oxygen saturation Oxygen saturation in Arterial blood by Pulse oximetry Systolic And Diastolic Provider Name and Address Organization Details Last Updated DateTime 2 169.55 cm 34.9 kg/m2 715369. 35 g 79 /min 99 % 99 % 128/80 mm[Hg] Teo Jeter, DO [address] [place], [address] [place] [address] Internal Medicine 2 15:49:08 Social History Question Answer Notes LastModified by Organizat ion Details LastModified Time Tobacco Smoking Status Current Every Day Smoker Not Available [facility] 09/06/2020 03:36:24 What Was The Date Of Your Most Recent Tobacco Screening? 09/05/2022 [id number] Information n ot available 09/08/2022 How Much Tobacco Do You Smoke? 0.25 PPD [id number] Information not available 09/06/2020 Sex: Female Functional [...] Tdap 0 completed Teo Jeter DO [address] [place], [address], [facility] 07/09/2020 18:02:00 Influenza, split virus, quadrivalent, preservative 0 completed Teo Jeter DO [address] [place], [address], [facility] 07/09/2020 18:02:08 Past Encounters Encounter ID Performer Location Encounter Start Date Encounter Closed Date Diagnosis/Indication Diagnosis SNOMED-CT Code Diagnosis ICD10 Code Diagnosis IMO Codes Diagnosis Note [id number] Teo Jeter DO [facility] [address] [facility],[place] [address] 01/01/2020 15:31:03 01/01/2020 16:23:48 Pain of bilateral hip joints 5801593477 7216524 M25.552 quite severe and not getting better despite using sulindac will tyrto get CT of left hip Primary Sj gren's syndrome 916126106 M35.00 following rhewum on MTx states has been good except for hip pain Keratoconj unctivitis sicca, in Sj gren's syndrome 66275086 M35.01 on MTX and has eye drops Butterfly rash 23469256 R21 curious that she was originally thought to have lupus but this dx has not been entertaine d in a long while 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 3531455237 00 Z79.899 gets periodic lab [id number] Teo Jeter DO [facility] [address] [facility],[place] [address] 07/29/2020 11:32:31 08/01/2020 09:10:35 Herpes zoster 8469952 B02.9 continue medication plan will see eye doctor and have vision checked and see if any other recommenda tions are added to plan [id number] Teo Jeter DO [facility] [address] [facility],[place] [address] 09/05/2022 15:22:55 09/06/2022 08:47:05 Primary Sj gren's syndrome 735720491 M35.00 following rheum on MTx states has been good except for hip pain but thuis is better now Active or passive immunization 102637434 Z23 patient advised she is due for flu shot Systemic l upus erythematosus 07584165 M32.9 i believe she has lupus and that she fits the diagnosis and is certainly NOT fibromyalg ia as discussed by the newest rheumatolo gist so we will look for a second op Screening for malignant neoplasm of colon 300366353 Z12.11 Health Concerns Section Related Observation LastModified by Organization Detai ls LastModified Time None Recorded Concern Status LastModified by Organization Details LastModified Time None Recorded Advance Directives Directive None Recorded Payers Insurance Date Sequence Insurance Name Policy Number Policy Miranda Covered Member ID Miranda Member ID Guarantor Name 12/30/2019 1 *SELF PAY* Early 09/05/2022 1 [facility] (PPO) [id number] 1 Blanca Pascal [id number] Blanca Pascal 09/05/2022 1 [facility] Blanca Pascal [id number] Blanca Pascal Notes Date Note Type Note Provider Name a tx Address Organization Details Recorded Time 01/01/2020 text/html ROS as noted in the HPI here for bridgetk still in a lot of pain and is doing her best to work through it she is on MTX for SS and is followed by her research affiliate appt in february Teo Jeter DO [address] [place], [address], [facility] 01/01/2020 16:18:14 07/29/2020 text/html ROS as noted in the HPI shingles the patient called the offender job retention specialist service number on about a rash that [...] abd pain, no n/d/v TRISTIN [address]AR[address] [place], [address], [facility] 08/01/2020 09:30:21 09/05/2022 text/html ROS as noted in the HPI here for rechkdoing ok overall but has been stiff and uncomfortable at times and has been bounced from research affiliate to 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 with sjogrensshe had been on humira and has been having to pay for the drugstill on plaquenil Teo Jeter, [address] [facility], [place], [address], [facility] 09/05/2022 16:28:48 OBGyn Episode No OBEpisode recorded.
--- OUTSIDE RECORDS SUMMARY | 2025-07-28 07:21 | XMS_ITS | Clinical Summary ---
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 01/01/202004/2023 Sjogren's syndrome with keratoconjunctivitis [...] topic Medical Devices Not on file Insurance [facility] PPO [facility] PPO [facility] PPO [employer]OSS OUT OF STATE PPO [employer] OUT OF STATE PPO BL[employer] OUT OF STATE PPO [employer] OUT OF STATE PPO [employer] OUT OF STATE PPO [employer] OUT OF STATE PPO Care Teams Customer Retention Representative Relationship Specialty Start Date End Date Pcp, Unknown PCP - General 07/10/23 Additional Source Comments The information contained in this document represents components of the legal health record. It is not the complete legal health record.[facility]
--- OUTSIDE RECORDS SUMMARY | 2025-07-28 07:21 | XMS_ITS | Encounter Summary ---
Author Organization [facility] Address [address] [facility] [address] [place] [address] Phone Care Team Providers Care Sewer Pipe Press Operator Name Role Phone Pcp, Unknown Primary Care Provider Unavailabl e Encounter Details Date Type Department Care Team (Latest Contact Info) Description 01/29/2024 Transcribe Orders [facility] Laboratory [address] [facility] 2nd Floor [place], [place] [id number] Cony Hernandez, MAIL HANDLERS SUPERVISOR [address] [place] [address] Diarrhea, unspecified type (Primary Dx); Rectal bleeding [...] AM EDT) Parasitic exam FINAL 4 1116 [facility] DPT OF LAB MED AND PAT+ Comment: (NOTE) SOURCE: STOOL, STLP OVA AND PARASITE, MICROSCOPY, F FINAL No parasites seen. Cryptosporidium, Cyclospora, and microsporidia are not readily detected by this method. Single negative specimen does not rule out parasitic infection. Stool (Stool) 02/06/2024 7:0 0 AM EDT 02/07/2024 8:33 AM EDT Cony Hernandez MAIL HANDLERS SUPERVISOR MICROBIOLOGY - GENERAL ORD ERABLES Final Result Performing Organization Address City/[facility]/ZIP Co de Phone Number [facility] DPT OF LAB MED AND PAT+ [address] [place] [address] * Giardia and cryptosporidium screen (02/06/2024 7:00 AM EDT) GIARDIA AG Negative Negative [facility] Cryptosporidiu m, stool Negative Negative [facility] Stool (Stool) 02/06/2024 7:0 0 AM EDT 02/07/2024 8:34 AM EDT Cony Hernandez [facility] NON CULTURE MICROBIOLOGY F inal Result Performing Organization Address [facility] Co de Phone Number [facility] [address] [place] [address] * Calprotectin, stool (02/06/2024 7:00 AM EDT) STOOL CALPROTECTIN 11 mcg/g [facility]/Timoteo MOFFETT [facility] Comment: (NOTE) Reference Range: <50 Normal 50-120 Borderline >120 Elevated Calprotectin in Crohn's disease and ulcerative colitis can be five to several thousand times above the reference population (50 mcg/g or less). Levels are usually 50 mcg/g or less in healthy patients and with irritable bowel syndrome. Repeat testing in 4-6 weeks is suggested for borderline values. Stool (Stool) 02/06/2024 7:0 0 AM EDT 02/07/2024 8:33 AM EDT Cony Hernandez MAIL HANDLERS SUPERVISOR BODY FLUIDS AND STOOLS ORD ERABLES Final Result Performing Organization Address City/[facility]/ZIP Co de Phone Number [facility]/BECKI [facility] [address] [place] [address], [facility] [phone] * Stool culture (02/06/2024 7:00 AM EDT) Special Requests None 02/07/2024 8:30 AM EDT [facility] Stool Culture NO SALMONELLA, SHIGELLA OR CAMPYLOBACTER ISOLATED 02/10/2024 8:23 AM EDT [facility] Stool (Stool) 02/06/2024 7:0 0 AM EDT 02/07/2024 8:34 AM EDT Cony Hernandez [facility] MICROBIOLOGY - GENERAL ORD ERABLES Final Result Performing Organization Address City/[facility] Co de Phone Number [address] [address] * (ABNORMAL) C. DIFFICILE PCR (02/06/2024 7:00 AM EDT) Pathologist [facility] C.DIFFICILE PCR Positive(A) Negative [facility] Comment:C.difficile gene was detected. C.difficile toxin assay has been reflexed. See separate report. C.DIFFICILE STRAIN PRESUMPTIVE NEGATIVE PRESUMPTIVE NEGATIVE [facility] Comment:Detection of 027/NAP 1/BI strains of C.difficile is presumptive and is solely for epidemiological purposes and is not intended to guide or monitor treatment of infections. Stool (Stool) 02/06/2024 7:0 0 AM EDT 02/07/2024 8:34 AM EDT Cony Hernandez [facility] MICROBIOLOGY - GENERAL ORD ERABLES Final Result [address] [address] * Ova and parasites, stool (02/05/2024 7:00 AM EDT) Pathologist [facility] Parasitic exam FINAL 4 1119 [facility] DPT OF LAB MED AND PAT+ Comment: (NOTE) SOURCE: STOOL, STLP OVA AND PARASITE, MICROSCOPY, F FINAL No parasites seen. Cryptosporidium, Cyclospora, and microsporidia are not readily detected by this method. Single negative specimen does not rule out parasitic infection. Stool (Stool) 02/05/2024 7:0 0 AM EDT 02/07/2024 8:33 AM EDT Cony Hernandez CNP MICROBIOLOGY - GENERAL ORD ERABLES Final Result [facility] DPT OF LAB MED AND PAT+ [address] [place] [address] * Ova and parasites, stool (02/04/2024 7:00 AM EDT) Pathologist [facility] Parasitic exam FINAL 4 2343 [facility] DPT OF LAB MED AND PAT+ Comment: (NOTE) SOURCE: STOOL, STLP OVA AND PARASITE, MICROSCOPY, F FINAL No parasites seen. Cryptosporidium, Cyclospora, and microsporidia are not readily detected by this method. Single negative specimen does not rule out parasitic infection. Stool (Stool) 02/04/2024 7:0 0 AM EDT 02/07/2024 8:33 AM EDT Cony Hernandez [facility] MICROBIOLOGY - GENERAL ORD ERABLES Final Result Performing Organization Address City/[facility]/ZIP Co de Phone Number [facility] DPT OF LAB MED AND PAT+ [address] [place] [address] * (ABNORMAL) C-Reactive Protein (01/29/2024 3:23 PM EDT) Pathologist [facility] C REACTIVE PROTEIN 4.9(H) 0.0 - 4.0 mg/L [facility] Blood 01/29/2024 3:23 PM EDT 01/29/2024 3:28 PM EDT Cony Hernandez [facility] LAB BLOOD ORDERABLES Final Result [facility] [address] [place] [address] * (ABNORMAL) Comprehensive metabolic panel (01/29/2024 3:23 PM EDT) SODIUM 141 133 - 146 mmol/L [facility] POTASSIUM 4.5 3.3 - 5.1 mmol/L [facility] CHLORIDE 103 96 - 108 mmol/L [facility] CO2 28 21 - 35 mmol/L [facility] BUN 11 6 - 19 mg/dL [facility] CREATININE 0.80 0.5 - 1.5 mg/dL [facility] GLUCOSE 85 70 - 99 mg/dL [facility] ALBUMIN 4.8 3.9 - 4.8 g/dL [facility] TOTAL PROTEIN 7.8 6.5 - 8.0 g/dL [facility] CALCIUM 9.8 8.4 - 10.3 mg/dL [facility] ALKALINE PHOSPHATASE 123(H) 39 - 117 U/L [facility] TOTAL BILIRUBIN 0.4 0.0 - 1.2 mg/dL [facility] AST 46(H) 0 - 37 U/L [facility] ALT 59(H) 0 - 40 U/L [facility] GLOBULIN 3.0 1 - 4.8 g/dL [facility] EGFR 85 >59 mL/min/1.7 3m2 [facility] Comment:Estimated glomerular filtration rate calculated using the CKD-EPI refit equation. ANION GAP 15 10 - 20 mmol/L [facility] Blood 01/29/2024 3:23 PM EDT 01/29/2024 3:28 PM EDT us Cony Hernandez [facility] LAB BLOOD ORDERABLES Final Result Performing Organization Address City/State/[facility] Co de Phone Number [address] [address] * (ABNORMAL) CBC and differential (01/29/2024 3:23 PM EDT) WBC 8.79 4.00 - 11.00 K/uL [facility] RBC 5.39(H) 3.72 - 5.30 M/uL [facility] HGB 16.0(H) 11.4 - 15.9 g/dL [facility] HCT 48.6(H) 34.2 - 46.8 % [facility] PLT 254 140 - 430 K/uL [facility] MCV 90.2 78.0 - 97.0 fL [facility] MCH 29.7 25.0 - 33.0 pg [facility] MCHC 32.9 32.0 - 36.0 g/dL [facility] RDW 13.5 11.0 - 16.0 % [facility] MPV 10.9 8.4 - 12.8 [facility] DIFF METHOD Auto [facility] NEUTS 45.2 43.0 - 75.0 % [facility] LYMPHS 47.1 18.2 - 47.4 % [facility] MONOS 4.9 4.00 - 11.00 % [facility] EOS 2.3 0.0 - 8.0 % [facility] BASOS 0.3 0.0 - 2.0 % [facility] Granulocytes, immature (%) 0.2 0.0 - 0.9 % [facility] ABSOLUTE NEUTS 3.97 1.80 - 7.70 K/uL [facility] ABSOLUTE LYMPHS 4.14(H) 1.00 - 3.10 K/uL [facility] ABSOLUTE MONOS 0.43 0.20 - 0.80 K/uL [facility] ABSOLUTE EOS 0.20 0.00 - 0.80 K/uL [facility] ABSOLUTE BASOS 0.03 0.00 - 0.09 K/uL [facility] Granulocytes, immature 0.02 0.00 - 0.05 K/uL [facility] Blood 01/29/2024 3:23 PM EDT 01/29/2024 3:28 PM EDT us Cony Hernandez [facility] LAB BLOOD ORDERABLES Final Result [facility] [address] [place] [address] * Immunoglobulin A (01/29/2024 3:23 PM EDT) IgA 183 70 - 400 mg/dL [facility] Blood 01/29/2024 3:23 PM EDT 01/29/2024 3:28 PM EDT us Cony Hernandez [facility] LAB BLOOD ORDERABLES Final Result [facility] [address] [place] [address] * Tissue transglutaminase IgA (01/29/2024 3:23 PM EDT) TTG IGA ANTIBODY <1.2 <4.0 (Negative) U/mL [facility] Blood 01/29/2024 3:23 PM EDT 01/29/2024 3:28 PM EDT Cony Hernandez [facility] LAB BLOOD ORDERABLES Final Result Performing Organization Address City/[facility]/ZIP Co de Phone Number [facility] [address] [place] [address] documented in this encounter Visit Diagnoses Diagnosis Diarrhea, unspecified type- Primary Rectal bleeding Hemorrhage of rectum and anus documented in this encounter Additional Health Concerns Infection Onset Date Last Indicated Resolved Time C. diff 02/06/2024 02/06/2024 03/07/2024 1:21 AM EDT documented as of this encounter Care Teams Sewer Pipe Press Operator Relationship Specialty Start Date End Date Pcp, Unknown PCP - General 07/10/23 documented as of this encounter Additional Source Comments The information contained in this document represents components of the legal health record. It is not the complete legal health record.[facility]
--- NOTE | 2025-07-28 07:33 | MHC.OFFVIS ---
Vital Signs 07/28/25 07:38 Height 5 ft 8 in Weight 210 lb 15.718 oz BMI 32.1 BP 142/84 H Blood Pressure Location Rt brachial Position Sitting Pulse 75 Pulse Source Pulse Oximeter Pulse Oximetry (%) 98 Oxygen Delivery Method Room Air Intake Visit Reasons: RA Intake Note: Patient presents for RA follow up. Allergies levofloxacin (From LEVAQUIN) Allergy (Severe, Verified 07/28/25 07:38) ANAPHYLAXIS ENVIRONMENTAL Allergy (Mild, Uncoded 11/12/24 08:13) SINSUS CONGESTION, ITCHY/WATERY EYES Medication List - Last Reconciled 07/28/25 by America Barrera MD acetaminophen ER (Mapap Arthritis Pain) 650 mg PO Q8H PRN belimumab (Benlysta) 200 mg subcut QWEEK 30 days cetirizine (Zyrtec) 10 mg PO DAILY cholecalciferol (vitamin D3) 125 mcg PO DAILY diphenhydramine-acetaminophen 25-500 mg (Tylenol PM Extra Strength) 1 tab PO BEDTIME folic acid 1 mg PO DAILY hydroxychloroquine 200 mg PO BID methotrexate sodium 15 mg (6 x 2.5 mg) PO QWEEK 90 days triamcinolone acetonide 0.1% 1 appl topical DAILY HPI Comments Details: Patient is a 60-year-old female with asthma, polyarticular OA and lupus presents today for follow up. Interval History: Patient last seen here 03/25/2025 with me - On Benlysta 200mg SC every week, methotrexate 20mg weekly, hydroxychloroquine 200mg bid and folic acid - Started Benlysta, no issues with the injections - Completed prednisone taper - Doing well overall - No prolonged Am stiffness - Methotrexate decreased to 6 pills due to elevated ALT Today - On Benlysta 200mg SC every week, methotrexate 15mg weekly, hydroxychloroquine 200mg bid and folic acid - More hair loss and more brain fog. The brain fog is not related to the MTx dose - Feels like she is doing well overall, when compared to a few months ago: no further rashes - joint pain worsening Rheumatologic History: Patient initially diagnosed with an autoimmune disorder back in 2016. At that time she was thought to have Sjogren's syndrome with a positive LOGAN and positive SSB. She also had some inflammatory joint pain and was started on Plaquenil and methotrexate. She was also noting malar rash the time. She was then subsequently thought to have seronegative rheumatoid arthritis and subsequently started on Humira which helped her joint pain. Her last follow up with Rheumatology was in 2022. Current Rheumatology Medication(s): Hydroxychloroquine 200mg bid Methotrexate 15mg weekly Folic acid 1 mg Benlysta 200 mg sc every week [facility] Medical History (Updated 03/25/25 @ 08:07 by America Barrera MD) Vitamin D deficiency Greater trochanteric bursitis of both hips Lupus (systemic lupus erythematosus) Osteoarthritis of lumbosacral spine Osteoarthritis of both knees Nail abnormalities Sjogren's syndrome Surgical History Hx of appendectomy Hx of cholecystectomy Social History Household Members: Spouse Both parents involved: No Caregiver staying overnight: No Housing: House Are you a primary customer care agent to a significant other at home: No Do you presently have visiting nurse or other home services: No 75 years or older and lives alone: No Alcohol intake: current Alcohol intake frequency: holidays/special occasions only Alcohol type: hard liquor Patient Tobacco Use Status: Former Tobacco user Years Smoked: quit 1 1/2 years ago Review of Systems Const Details: Review of Systems Constitutional: Denies fever, chills, weight loss ENT: Denies vision changes, eye pain or eye redness, dental caries, dry mouth GI: Denies nausea, vomiting, diarrhea, abdominal pain, change in BM Pulm: Denies SOB, ROMO, hemoptysis, wheezing Cards: Denies chest pain, palpitations Skin: Denies Raynaud's, rash, nail changes, photosensitivity, [employer]: Denies headaches, weakness, paresthesias, recurrent falls MSK: as per HPI All other systems reviewed and are unremarkable except noted above Physical Exam Exam Exam: Vital signs reviewed Physical Examination CONSTITUITIONAL Patient alert and cooperative. Well appearing and in no apparent painful distress MSK Hands Right Hand: Able to make a fist. No swelling. Tenderness to palpation of the MCPs, PIPs & DIPs. Left Hand: Able to make a fist. No swelling. Tenderness to palpation of the MCPs, PIPs & DIPs. Wrists Right Wrist: Full ROM to flexion and extension. No swelling or TTP Left Wrist: Full ROM to flexion and extension. No swelling or TTP Elbows Right Elbow: Full ROM. No swelling or TTP. No TTP of the medial epicondyle. No TTP of the lateral epicondyle Left Elbow: Full ROM. No swelling or TTP. No TTP of the medial epicondyle. No TTP of the lateral epicondyle Shoulders Right shoulder: No swelling noted. No TTP of the AC joint. No TTP of the subacromial bursa. No TTP of the posterior shoulder Left shoulder: No swelling noted. No TTP of the AC joint. No TTP of the subacromial bursa. No TTP of the posterior shoulder Hips Right hip: Good ROM. No pain elicited with hip flexion/internal rotation/external rotation Left hip: Good ROM. No pain elicited with hip flexion/internal rotation/external rotation Hip bursa: No tenderness to palpation bilaterally Knees Right knee: Full ROM. No swelling noted. No TTP of the knee joint line. No TTP of pes anserine bursa Left knee: Full ROM. No swelling noted. No TTP of the knee joint line. No TTP of pes anserine bursa. Ankles Right ankle: Good ankle dorsiflexion and plantar flexion. No swelling. No TTP of the ankle joint Left ankle: Good ankle dorsiflexion and plantar flexion. No swelling. No TTP of the ankle joint Feet Right foot: Negative squeeze test Left foot: Negative squeeze test Tender points? No tenderness to palpation of the bilateral trapezius, supraspinatus, anterior costochondral junctions, bilateral suboccipital muscle insertions SKIN Overall hair thinning No bald spots or alopecia Vital Signs: Last Vital Signs Pulse 75 07/28/25 07:38 BP 142/84 H 07/28/25 07:38 Pulse Ox 98 07/28/25 07:38 Oxygen Delivery Method Room Air 07/28/25 07:38 BMI result Body Mass Index 32.1 Results Reviewed Results Reviewed: Laboratory Tests 06/27/21 03/22/25 07/26/25 08:34 10:00 13:38 WBC 9.6 RBC 4.86 Hgb 15.2 Hct 44.3 Plt Count 233 ESR 7 Sodium 142 Potassium 4.1 Chloride 106 Carbon Dioxide 28 BUN 13 Creatinine 0.76 AST 30 ALT 26 C-Reactive Protein 0.55 H Laboratory Tests 07/26/25 13:27 Urine Color Yellow Urine Blood Small (1+) H Ur Leukocyte Esterase Small (1+) H Urine RBC 0-2 Urine WBC 11-20 H Protein/Creatinin Ratio 0.08 Laboratory Tests 03/22/25 07/26/25 10:00 13:38 Complement C3 177 158 Complement C4 30 27 Assessment & Plan Assessment & Plan (1) Lupus (systemic lupus erythematosus): Comment: Onset 2014: with pos LOGAN, pos SS-B, sicca symptoms, malar rash. hydroxychloroquine, started 2018 methotrexate added, Humira added 06/2021 - not helpful, ran out of Humira and methotrexate early 2021. 12/2021 restarted methotrexate and Humira 08/25 Mtx decreased and Humira continued 08/25 - 11/2024 lost to follow up 11/2024: Humira discontinued, MTx increased, Benlysta started 03/2025: Mtx decreased s/s elevated LFTs Code(s): M32.9 - Systemic lupus erythematosus, unspecified Category: Medical Qualifiers: Systemic lupus erythematosus type: unspecified Systemic lupus erythematosus organ involvement: unspecified Qualified Code(s): M32.9 - Systemic lupus erythematosus, unspecified Plan: #Lupus Patient is a 60-year-old female with lupus here today for follow up. 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 Monitoring: ?CBC, BMP, LFTs every 3-4 months as needed (3) Encounter for monitoring leflunomide therapy: Code(s): Z51.81 - Encounter for therapeutic drug level monitoring; Z79.69 - [facility] (current) use of other immunomodulators and immunosuppressants Plan: #Long-term leflunomide Discussed with patient the benefits and risks of leflunomide for managing the rheumatic condition Benefits include: - Reduced pain, maintenance of remission and reduction of flares Risks include: - GI upset especially diarrhea, skin rash, cytopenias, hepatotoxicity, weight loss, neuropathy Leflunomide is highly teratogenic. Has a very long half-life. Needs cholestyramine washout if there is desire for Monitoring: CBC, BMP, LFTs, hepatitis B and C serologies Plan I spent 35 minutes reviewing the record and labs, taking a history, examining the patient, discussing the treatment plan and documenting in the medical record Orders: Orders Complete Blood Count Auto Diff 4 Months M32. - Systemic lupus erythematosus, unspecified Comprehensive Met. Panel 4 Months M32. - Systemic lupus erythematosus, unspecified Erythrocyte Sedimentation Rate 4 Months M32. - Systemic lupus erythematosus, unspecified Complement C3 4 Months M32. - Systemic lupus erythematosus, unspecified UA ClnCatch+Micro w/rflx Cult 4 Months M32. - Systemic lupus erythematosus, unspecified Protein Creatinine Ratio, Ur 4 Months M32. - Systemic lupus erythematosus, unspecified C Reactive Protein 4 Months M32. - Systemic lupus erythematosus, unspecified Complement C4 4 Months M32. - Systemic lupus erythematosus, unspecified Anti DNA DS Antibody 4 Months M32. - Systemic lupus erythematosus, unspecified Medications: New leucovorin calcium 5 mg PO QWEEK 90 days 13 tabs 0RF M3.9 - Systemic lupus erythematosus, unspecified, Z79.899 - Other assisted (current) drug therapy leflunomide 20 mg PO DAILY 90 tabs 1RF M32.9 - Systemic lupus erythematosus, unspecified Discontinued methotrexate sodium Discontinued Reason: Doctor's Order 15 mg (6 x 2.5 mg) PO QWEEK 90 days 78 tabs 1RF M32.9 - Systemic lupus erythematosus, unspecified Coding Level of Care Code Est Pt Level 4 (91256) Complex EM visit Add On G2211 Diagnoses Systemic lupus erythematosus, unspecified SLE type, unspecified organ involvement status M32.9 Systemic lupus erythematosus type: unspecified Systemic lupus erythematosus organ involvement: unspecified 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
[2025-07-28 07:38] VITALS: BP 142/84; PULSE 75; O2SAT 98; BMI 32.1
== END 2025-07-28 08:11 | disposition home or self-care (01) ==
LOC: HO.RHES 07:18
PROVIDERS: PCP Family Medicine; Visit Provider Student in an Organized Health Care Education/Training Program
DX: M32.9 Systemic lupus erythematosus, unspecified (principal); Z79.899 Other long term (current) drug therapy; Z51.81 Encounter for therapeutic drug level monitoring; Z79.69 Long term (current) use of other immunomodulators and immunosuppressants
CPT/HCPCS: 99214